=== PATIENT | female | born 1950 | race Caucasian/White ===

== ENCOUNTER 2025-02-27 10:48 | Outpatient (AMB) | payer MEDICARE, SELFPAY ==
--- NOTE | 2025-02-27 11:07 | HO.SPINEOV ---
Vital Signs 02/27/25 11:11 Height 5 ft 1 in Weight 125 lb BMI 23.6 Intake Visit Reasons: Second opinion LBP Intake Note: Mrs. Vuong is here today for a second opinion of her low back pain. Resin Remover Required: No Allergies oxycodone Allergy (Severe, Verified 02/27/25 11:16) Confusion Physical Exam Vital Signs: BMI result Body Mass Index 23.6 Assessment & Plan Assessment & Plan (1) Back pain: Code(s): M54.9 - Dorsalgia, unspecified Category: Medical Plan This is a very nice 74-year-old female with history of osteoporosis, overlapping diagnosis of advanced Lyme disease that was diagnosed very late in the stage where it had caused diffuse inflammation in her body and gave her tremendous whole-body pain and discomfort. She had back pain and was managing it and possibly a year ago or so she felt a pop in her back. That ultimately gave her tremendous back pain. She ended up at [facility] where she was evaluated, was told she was not a surgical candidate. She was thinking something could be done for the compression fracture that was seen at L4 that time, but it was past the time where it was amenable to kyphoplasty so they are unable to help her with that either. They sent her to the [facility] management [facility] [place] [facility]. They were going to do an injection but that ultimately fell through. The patient was not all that excited about it anyway. She has been doing CBD gummies, and physical therapy as well as other Lyme related joint laser therapies as well. She also needs a left hip replaced, but was told by the surgeon in [place] that it needed to be done after her back was fixed 1st. She comes in today with her MRI and requesting a 2nd opinion about her back. PMH: Osteoarthritis, osteoporosis, ovarian cyst removal when she was young with adhesions and surgery for a blocked bowel. She had a right hip replacement, mastectomy for breast cancer. As mentioned she had an undiagnosed case of Lyme that went on for few years which absolutely ravaged her body and left her with chronic pain in multiple joints as well as gave her neurological symptoms such as head tremor and other neurological effects. She has been dealing with the after effects of that diagnosis now for a long time and it more less sends a shadow over most of her pain issues. Social hx: She uses CBD gummies, does not smoke, drink or use any recreational drugs Medications: She takes Ativan asleep, occasional Tylenol and ibuprofen Allergies: Gabapentin made her unsteady on her feet, oxycodone gave her confusion. Physical exam: She is awake alert oriented, she is very uncomfortable, she has a severely arthritic left hip which makes walking and bearing weight very uncomfortable. Any attempts to manipulate the left leg were difficult secondary to pain and discomfort with even passive range of motion. Her strength outside of that related to her hip where is otherwise full and reflexes were normal. Imaging review: Lumbar MRI was reviewed, done at [facility] in 2024 and 2023 as well as a CAT scan was reviewed. This shows severe osteoporosis, she has disc degeneration at T11-12. The rest of the disc quality of the lumbar spine however looks relatively good. She has facet arthropathy throughout most of her lumbar spine. No evidence of disc herniations. The acute compression fractures that were seen on her MRI last year are well healed. There is no new fracture seen. Impression: This is a 74-year-old female who has history of osteoporosis, overriding diagnosis of chronic Lyme disease which was very advanced by the time it was diagnosis, and left her with chronic joint inflammation in multiple areas of her body including her back. Overall in terms of her lumbar spine alignment, there is no evidence of spondylolisthesis, acute fracture. Her disc quality looks otherwise okay. There is no evidence of an acute disc herniation. Right now I do not have a clear surgical target that would explain all of her back pain and discomfort. I think a lot of it has to do with her Lyme disease. Unfortunately, she is waiting on a potential left hip replacement but they wanted her back to be operated on . I agree with the doctor at [facility] who saw her and told her that she was not a surgical candidate, primarily because there is nothing specific here that would lend itself well to surgery on her MRI findings. However, even if there was, her bone quality is so poor, I doubt any attempt at fusing her spine would be met with any success, and she would be very high risk for complication. This is a very unfortunate situation for her, but I do not think we can help her. Thank you for allowing us to care for your patient. The total time spent with this visit with this patient was 45 minutes reviewing history, physical exam, lumbar imaging review, and implementation of treatment plan or further diagnostic testing Ahmet Dietrich MD,PhD [facility] Coding Level of Care Code New Pt Level 4 (44693) Diagnoses Back pain M54.9
[2025-02-27 11:11] VITALS: BMI 23.6
--- OUTSIDE RECORDS SUMMARY | 2025-02-27 12:20 | XMS_ITS | Encounter Summary ---
Author Organization [facility] Address [address] [place] [phone] Phone Care Team Providers Care Leveler Helper Name Role Phone Blanche Morris CNP Primary Care Provide r Lizzy Huber MD Unavailable Unavailable Lizzy Huber MD Unavailable Makenzie Mcghee MD Unavailable Sadie Marina PA-C Unavailable pnugen Mary CoatesP Unavailable [phone] SpringTali MD Unavailable [phone] Alejandro Tirado MD Unavailable Blanche Morris CNP Unavailable Encounter Details Date Type Department Care Team (Late st Contact Info) Description 10/10/2022 Procedure Pass [facility], Ct Scan - [facility] [address] [place] [address] Social History Tobacco Use Types Packs/Day Years Used Date Smoking Tobacco: Former Cigarettes 0.3 37 1 07/04/1969 - 05/03/2007 Smokeless Tobacco: Never Alcohol Use Standard Drinks/Week Comments Yes 0 (1 standard drink = 0.6 oz pur e alcohol) twice a year Education Answer Date Recorded Are you interested in more education? Not on nicki e 09/25/2022 Are you concerned about learning? Not on file 09/25/2022 No 09/25/2022 No 09/25/2022 Comments No Sex and Gender Information Value Date Recorded Sex Assigned at Female 09/16/2022 3:34 PM EDT Legal Sex Female 7:12 AM EST Gender Identity Female 09/16/2022 3:34 PM EDT Sexual Orientation Straight 12/26/2022 8: 56 PM EDT documented as of this encounter Plan of Treatment Upcoming Encounters Date Type Department Care Team (Late st Contact Info) Description 11/23/2024 Procedure Pass [address] [address] 10/06/2025 11:00 AM EDT Appointment [address] [address] Lizzy Huber MD [address] [place] [address] [email or web address] documented as of this encounter Visit Diagnoses Not on filedocumented in this encounter Additional Health Concerns Assessment Noted Time PHQ-9 Depression Total Score: 18 022 10:26 AM EST PHQ-2 Depression Total Score: 4 05/07/20 22 10:27 AM EST documented as of this encounter Care Teams Leveler Helper Relationship Specialty Start Date End Date Blanche Morris CNP [address] [place] [address] PCP - General Family Medicine 07/05/18 Lizzy Huber MD Primary Oncologist Medical Oncology 10/10/22 10/19/22 Lizzy Huber MD [address] [place] [address] Primary Oncologist Medical Oncology 10/20/22 Makenzie Mcghee MD [address] [place] [address] General Surgery 10/25/22 Sadie Marina PA-C [address] [place] [address], 2[address] [place] [address] Physician Cartographic Technician Medical Oncology 11/12/22 Mary Coates, TIRE ASSEMBLER [address] [place] [address] Nurse Practitioner Medical Oncology 11/17/22 Tali Guerrero MD [address] [place] [phone] Primary Oncologist Medical Oncology 12/31/22 Alejandro Tirado MD [address] [address] Primary Oncologist Hematology and Oncology 02/06/23 08/13/23 Blanche Morris CNP [address] [place] [address] Insurance Assigned Provider 09/04/24 documented as of this encounter Additional Source Comments The information contained in this document represents components of the legal health record. It is not the complete legal health record.[facility]
--- OUTSIDE RECORDS SUMMARY | 2025-02-27 12:20 | XMS_ITS | Encounter Summary ---
Author Organization [facility] Address [address] [place] [address] Phone Care Team Providers Care Strapping Machine Operator Name Role Phone Blanche Morris CNP Primary Care Provide r Dioni Webb DO Unavailable Lizzy Huber MD Unavailable Unavailable Lizzy Huber MD Unavailable Makenzie Mcghee MD Unavailable Sadie MarinaC Unavailable tom Mary Coates PRINCIPAL TECHNICAL SPECIALIST Unavailable [phone] SpringTali MD Unavailable [phone] Alejandro Tirado MD Unavailable Blanche Morris CNP Unavailable Encounter Details Date Type Department Care Team (Late st Contact Info) Description 10/19/2019 Transcribe Orders [facility] [address] [place] [address] Sasha Breen MD [address] [place] [address] Encounter for long-term (current) use of antibiotics (Primary Dx) Social History Tobacco Use Types Packs/Day Years Used Date Smoking Tobacco: Former Smokeless Tobacco: Never Alcohol Use Standard Drinks/Week Comments Not Currently 0 (1 standard drink = 0.6 oz pur e alcohol) Rare Comments No Sex and Gender Information Value Date Recorded Sex Assigned at Female 09/16/2022 3:34 PM EDT Legal Sex Female 7:12 AM EST Gender Identity Female 09/16/2022 3:34 PM EDT Sexual Orientation Straight 12/26/2022 8: 56 PM EDT documented as of this encounter Plan of Treatment Upcoming Encounters Date Type Department Care Team (Late st Contact Info) Description 11/23/2024 Procedure Pass [address] [address] 10/06/2025 11:00 AM EDT Appointment [address] [address] Lizzy Huber MD [address] [place] [address] documented as of this encounter Visit Diagnoses Diagnosis Encounter for long-term (current) use of antibiotics- Primary documented in this encounter Additional Health Concerns Assessment Noted Time PHQ-2 Depression Total Score: 3 05/14/20 18 11:14 AM EST documented as of this encounter Care Teams Strapping Machine Operator Relationship Specialty Start Date End Date Blanche Morris CNP [address] [place] [address] PCP - General Family Medicine 07/05/18 Dioni Webb DO [address] [place] [phone] Insurance Assigned Provider 09/07/19 06/09/20 Lizzy Huber MD Primary Oncologist Medical Oncology 10/10/22 10/19/22 Lizzy Huber MD [address] [place] [address] Primary Oncologist Medical Oncology 10/20/22 Makenzie Mcghee MD [address] [place] [address] General Surgery 10/25/22 Sadie Marina PA-C [address] [place] [address] Physician Technical Staff Assistant Medical Oncology 11/12/22 Mary Coates, PRINCIPAL TECHNICAL SPECIALIST [address] [place] [address] Nurse Practitioner Medical Oncology 11/17/22 Tali Guerrero MD [address] [place] [phone] Primary Oncologist Medical Oncology 12/31/22 Alejandro Tirado MD [address] [address] Primary Oncologist Hematology and Oncology 02/06/23 08/13/23 Blanche Morris, MARINA [address] [place] [address] Insurance Assigned Provider 09/04/24 documented as of this encounter Additional Source Comments The information contained in this document represents components of the legal health record. It is not the complete legal health record.[facility]
--- OUTSIDE RECORDS SUMMARY | 2025-02-27 12:20 | XMS_ITS | Encounter Summary ---
Author Organization [facility] Address [address] [place] [address] Phone Care Team Providers Care Athletic Turf Worker Name Role Phone Blanche Morris CNP Primary Care Provide r Lizzy Huber MD Unavailable Makenzie Mcghee MD Unavailable Sadie Marina PA-C Unavailable tom Mary Coates METAL SANDER AND FINISHER Unavailable [phone] Tali Guerrero MD Unavailable [phone] Blanche Morris CNP Unavailable Encounter Details Date Type Department Care Team (Late st Contact Info) Description 02/19/2024 Procedure Pass [facility], [address] [address] Social History Tobacco Use Types Packs/Day Years Used Date Smoking Tobacco: Former Cigarettes 0.3 37 1 07/04/1969 - 05/03/2007 Smokeless Tobacco: Never Alcohol Use Standard Drinks/Week Comments Yes 0 (1 standard drink = 0.6 oz pur e alcohol) not regularly Home Health Assessment: Transportation Answer Date Recorded Lack of Transportation (Medical) No 06/11/2023 Lack of Transportation (Non-Medical) No 06/11/2023 Patient Unable or Declines to Respond No 06/11/2023 Education Answer Date Recorded Are you interested in more education? Not on nicki e 09/25/2022 Are you concerned about learning? Not on file 09/25/2022 No 09/25/2022 No 09/25/2022 Digital Access Answer Date Recorded No 10/22/2022 No 10/22/2022 Reliable internet access at home? Not on file 10/22/2022 Device with a working camera? Not on file Intimate Partner Violence Answer Date R ecorded Are you denied basic needs s uch as food, clothing, or medical care? No 01/29/2024 In the past 12 months have y ou been in a relationship with a person who hurts, threatens, or tries to control you? No 01/29/2024 Are you denied basic needs s uch as food, clothing, or medical care? No 01/29/2024 In the past 12 months have y ou been in a relationship with a person who hurts, threatens, or tries to control you? No 01/29/2024 Comments No Sex and Gender Information Value Date Recorded Sex Assigned at Female 09/16/2022 3:34 PM EDT Legal Sex Female 7:12 AM EST Gender Identity Female 09/16/2022 3:34 PM EDT Sexual Orientation Straight 12/26/2022 8: 56 PM EDT documented as of this encounter Plan of Treatment Upcoming Encounters Date Type Department Care Team (Late st Contact Info) Description 11/23/2024 Procedure Pass [address] [address] 10/06/2025 11:00 AM EDT Appointment [address] [address] Lizzy Huber MD [address] [place] [address] [email or web address] documented as of this encounter Visit Diagnoses Not on filedocumented in this encounter Additional Health Concerns Assessment Noted Time PHQ-9 Depression Total Score: 10 025 8:10 AM EST PHQ-2 Depression Total Score: 4 06/02/19 25 8:10 AM EST documented as of this encounter Care Teams Athletic Turf Worker Relationship Specialty Start Date End Date Blanche Morris CNP [address] [place] [address] [email or web address] PCP - General [facility] Medicine 07/05/18 Lizzy Huber MD [address] [place] [address] [email or web address] Primary Oncologist Medical Oncology 10/20/22 Makenzie Mcghee MD [address] [address] [email or web address] General Surgery 10/25/22 Sadie Marina PA-C [address] [place] [phone] [email or web address] Physician Vamper Medical Oncology 11/12/22 Mary Coates FNP [address] [place] [address] [email or web address] Nurse Practitioner Medical Oncology 11/17/22 Tali Guerrero MD [address] [place] [phone] [email or web address] Primary Oncologist Medical Oncology 12/31/22 Blanche Morris CNP [address] [place] [address] [email or web address] Insurance Assigned Provider 09/04/24 documented as of this encounter Additional Source Comments The information contained in this document represents components of the legal health record. It is not the complete legal health record.[facility]
--- OUTSIDE RECORDS SUMMARY | 2025-02-27 12:20 | XMS_ITS | Encounter Summary ---
Author Organization [facility] Address [address] [place] [address] Phone Care Team Providers Care Grinder Brake Lining Name Role Phone Blanche Morris CNP Primary Care Provide r Lizzy Huber MD Unavailable Makenzie Mcghee MD Unavailable [phone] Sadie Marina PA-C Unavailable tom Mary Coates INTERVENTION NURSE Unavailable SpringTali MD Unavailable [phone] Alejandro Tirado MD Unavailable Blanche Morris CNP Unavailable Encounter Details Date Type Department Care Team (Late st Contact Info) Description 10/28/2022 Procedure Pass [facility] Cardiovascular And Interventional Radiology [address] [place] [address] Social History Tobacco Use Types Packs/Day Years [...] with a working camera? Not on file Comments No Sex and Gender Information Value Date Recorded Sex Assigned at Female 09/16/2022 3:34 PM EDT Legal Sex Female 7:12 AM EST Gender Identity Female 09/16/2022 3:34 PM EDT Sexual Orientation Straight 12/26/2022 8: 56 PM EDT documented as of this encounter Plan of Treatment Upcoming Encounters Date Type Department Care Team (Late st Contact Info) Description 11/23/2024 Procedure Pass [address] [address] 10/06/2025 11:00 AM EDT Appointment [address] [address] Lizzy Huber MD [address] [place] [address] documented as of this encounter Visit Diagnoses Not on filedocumented in this encounter Additional Health Concerns Assessment Noted Time PHQ-9 Depression Total Score: 18 022 10:26 AM EST PHQ-2 Depression Total Score: 4 05/07/20 22 10:27 AM EST documented as of this encounter Care Teams Grinder Brake Lining Relationship Specialty Start Date End Date Blanche Morris CNP [address] [place] [address] [place] [address] PCP - General Family Medicine 07/05/18 Lizzy Huber MD [address] [place] [address] Primary Oncologist Medical Oncology 10/20/22 Makenzie Mcghee MD [address] [address] General Surgery 10/25/22 Sadie Marina PA-C [address] [place] [address] Physician Pantograph Transferrer Medical Oncology 11/12/22 Mary Coates FNP [address] [place] [address] Nurse Practitioner Medical Oncology 11/17/22 Tali Guerrero MD [address] [place] [phone] [email or web address] Primary Oncologist Medical Oncology 12/31/22 Alejandro Tirado MD [address] [address] Primary Oncologist Hematology and Oncology 02/06/23 08/13/23 Blanche Morris, MARINA [address] [place] [address] Insurance Assigned Provider 09/04/24 documented as of this encounter Additional Source Comments The information contained in this document represents components of the legal health record. It is not the complete legal health record.[facility]
--- OUTSIDE RECORDS SUMMARY | 2025-02-27 12:20 | XMS_ITS | Encounter Summary ---
Author Organization [facility] Address [address] [place] [address] Phone Care Team Providers Care Bin Cleaner Name Role Phone Blanche Morris CNP Primary Care Provide r Lizzy Huber MD Unavailable Makenzie Mcghee MD Unavailable Sadie Marina PA-C Unavailable tom Mary Coates PIPE AND BOILER COVERS SUPERVISOR Unavailable [place] MD Unavailable [phone] Blanche Morris CNP Unavailable [phone] Reason for Referral * MRI/CAT Scan - Closed Specialty Diagnoses / Procedures Referred By Contac t Referred To Contact Radiology Diagnoses Spinal stenosis, lumbar region without neurogenic claudication Other intervertebral disc degeneration, lumbar region without mention of lumbar back pain or lower extremity pain Procedures MRI Lumbar Spine Juan Diego Wynn MD [address] [place] [address] Phone: tel: fax: Referral ID Status Reason Start Date Expiration Date Visits Re quested Visits Authorized [id number] Closed 01/17/2025 01/17/2026 1 1 Encounter Details Date Type Department Care Team (Latest Contact Info) Description 01/17/2025 Transcribe Orders Virtual Department [address] [place] [address] Juan Diego Wynn MD [address] [place] [address] [phone] Spinal stenosis, lumbar region without neurogenic claudication (Primary Dx); Other intervertebral disc degeneration, lumbar region without mention of lumbar back pain or lower extremity pain Social History Tobacco Use Types Packs/Day Years [...] as food, clothing, or medical care? No 06/02/2024 In the past 12 months have y ou been in a relationship with a person who hurts, threatens, or tries to control you? No 06/02/2024 Are you denied basic needs s uch as food, clothing, or medical care? No 06/02/2024 In the past 12 months have y ou been in a relationship with a person who hurts, threatens, or tries to control you? No 06/02/2024 Comments No Sex and Gender Information Value Date Recorded Sex Assigned at Female 09/16/2022 3:34 PM EDT Legal Sex Female 7:12 AM EST Gender Identity Female 09/16/2022 3:34 PM EDT Sexual Orientation Straight 12/26/2022 8: 56 PM EDT documented as of this encounter Plan of Treatment Upcoming Encounters Date Type Department Care Team (Late st Contact Info) Description 11/23/2024 Procedure Pass [address] [address] 10/06/2025 11:00 AM EDT Appointment [address] [address] Lizzy Huber MD [address] [place] [email or web address] documented as of this encounter Results * MRI LUMBAR SPINE (NEURO) WITHOUT CONTRAST (02/11/2025 11:00 AM EDT) Anatomical Region Laterality Modality L-spine Magnetic Resonan ce 02/13/2025 9:20 AM EDT Impressions 02/13/2025 9:30 AM EDT 1. Interval healing of the L4 superior endplate compression fracture, with resolution of the bone marrow edema. 2. L5 superior endplate chronic compression fracture, unchanged. 3. No acute compression fracture. 4. Extensive degenerative disc disease and facet joint arthropathy at multiple levels, with mild canal stenosis at multiple levels, and multilevel foramina stenosis, as above. 5. Other findings, as above. Narrative 02/13/2025 9:30 AM EDT MRI LUMBAR SPINE (NEURO) WITHOUT CONTRAST Referring clinician's provided indication for this examination in Epic: Outside Radiology Order; spinal stenosis TECHNIQUE: MRI LUMBAR SPINE (NEURO) WITHOUT CONTRAST Multi-sequence, multi-planar MRI of the lumbar spine was performed without intravenous contrast. COMPARISON: Lumbar spine CT scan December 25, 2023. MRI lumbar spine October 28, 2023. FINDINGS: LUMBAR SPINE: Alignment and Vertebrae: Grade 1 spondylolisthesis again seen at L4-L5, without significant change. Mild anterolisthesis noted at L3-L4 and L5-S1, stable. There is also mild retrolisthesis at T11-T12 and T12-L1, unchanged. Interval healing of the L4 superior endplate compression fracture, with resolution of the bone marrow edema. There are vertebral height is unchanged with minimal loss of height, less than 25%. Chronic compression fracture again seen in the L5 superior endplate with 25% loss of height, stable. Other vertebral demonstrate normal height. No acute compression fracture. Marrow: No worrisome bone marrow replacing lesion. Discs and Endplates: Loss of disc height at T11-T12 and T12-L1, moderate to severe, with Modic type II endplate changes at T11-T1, stable. There is mild to moderate loss of disc height at L2-L3 and mild loss of disc height at L3-L4 and L5-S1, unchanged. Conus: The tip of the conus ends at T12-L1. No compression or intrinsic signal abnormality. Soft Tissues: No prevertebral edema. There is atrophy of the posterior paraspinous muscles. Other Findings: T2 hyperintensity in the right hepatic lobe laterally and peripherally measuring 11 mm, seen on the localizer sequence, not completely characterized in this exam. Tiny T2 hyperintensity in the right upper renal cortex measuring 4 mm, not completely characterized in this study. These may represent small cysts. Please see abdomen and pelvis CT of October 22, 2022. Findings by level: T11-T12: Disc osteophyte complex and facet arthropathy, without significant change. No high-grade spinal canal stenosis. Severe right foraminal stenosis, stable. T12-L1: Facet hypertrophy no significant posterior disc abnormality. There is retrolisthesis at this level. There is mild encroachment of the spinal canal without high-grade stenosis. There is severe left and moderate to severe right foraminal stenosis. L1-L2: Mild disc bulging. Facet joint arthropathy. No high-grade spinal canal stenosis. Moderate bilateral foraminal stenosis. L2-L3: Disc bulge and facet arthropathy. No high-grade spinal canal stenosis or foraminal stenosis. L3-L4: Minimal bulging with a right foraminal annulus fissure, stable. Facet arthropathy. There is mild spinal canal stenosis. No high-grade foraminal stenosis. L4-L5: Disc bulge. There is a central annulus fissure, stable. Facet joint arthropathy. Mild encroachment of the canal, unchanged. Minimal encroachment of the right foramina. L5-S1: Minimal disc bulging with a left subarticular zone annulus fissure, stable. Facet arthropathy. No high-grade spinal canal stenosis or significant foraminal stenosis. Procedure Note Gertrudis Conde MD - 02/13/2025 MRI LUMBAR SPINE (NEURO) WITHOUT CONTRAST Referring clinician's provided indication for this examination in Epic:Outside Radiology Order; spinal stenosis TECHNIQUE: MRI LUMBAR SPINE (NEURO) WITHOUT CONTRAST Multi-sequence, multi-planar MRI of the lumbar spine was performed withoutintravenous contrast. COMPARISON: Lumbar spine CT scan December 25, 2023. MRI lumbar spine September. FINDINGS: LUMBAR SPINE: Alignment and Vertebrae: Grade 1 spondylolisthesis again seen at L4-L5,without significant change. Mild anterolisthesis noted at L3-L4 and L5-S1,stable. There is also mild retrolisthesis at T11-T12 and T12-L1,unchanged. Interval healing of the L4 superior endplate compression fracture, withresolution of the bone marrow edema. There are vertebral height isunchanged with minimal loss of height, less than 25%. Chronic compressionfracture again seen in the L5 superior endplate with 25% loss of height,stable. Other vertebral demonstrate normal height. No acute compressionfracture. Marrow: No worrisome bone marrow replacing lesion. Discs and Endplates: Loss of disc height at T11-T12 and T12-L1, moderateto severe, with Modic type II endplate changes at T11-T1, stable. There ismild to moderate loss of disc height at L2-L3 and mild loss of disc heightat L3-L4 and L5-S1, unchanged. Conus: The tip of the conus ends at T12-L1. No compression or intrinsicsignal abnormality. Soft Tissues: No prevertebral edema. There is atrophy of the posteriorparaspinous muscles. Other Findings: T2 hyperintensity in the right hepatic lobe laterally andperipherally measuring 11 mm, seen on the localizer sequence, notcompletely characterized in this exam. Tiny T2 hyperintensity in the rightupper renal cortex measuring 4 mm, not completely characterized in thisstudy. These may represent small cysts. Please see abdomen and pelvis CTof October 22, 2022. Findings by level: T11-T12: Disc osteophyte complex and facet arthropathy, withoutsignificant change. No high-grade spinal canal stenosis. Severe rightforaminal stenosis, stable. T12-L1: Facet hypertrophy no significant posterior disc abnormality. Thereis retrolisthesis at this level. There is mild encroachment of the spinalcanal without high-grade stenosis. There is severe left and moderate tosevere right foraminal stenosis. L1-L2: Mild disc bulging. Facet joint arthropathy. No high-grade spinalcanal stenosis. Moderate bilateral foraminal stenosis. L2-L3: Disc bulge and facet arthropathy. No high-grade spinal canalstenosis or foraminal stenosis. L3-L4: Minimal bulging with a right foraminal annulus fissure, stable.Facet arthropathy. There is mild spinal canal stenosis. No high-gradeforaminal stenosis. L4-L5: Disc bulge. There is a central annulus fissure, stable. Facet jointarthropathy. Mild encroachment of the canal, unchanged. Minimalencroachment of the right foramina. L5-S1: Minimal disc bulging with a left subarticular zone annulus fissure,stable. Facet arthropathy. No high-grade spinal canal stenosis orsignificant foraminal stenosis. IMPRESSION: 1. Interval healing of the L4 superior endplate compression fracture,with resolution of the bone marrow edema. 2. L5 superior endplate chronic compression fracture, unchanged. 3. No acute compression fracture. 4. Extensive degenerative disc disease and facet joint arthropathy atmultiple levels, with mild canal stenosis at multiple levels, andmultilevel foramina stenosis, as above. 5. Other findings, as above. Juan Diego Wynn MD G MR XSPECIALTY Final Result documented in this encounter Visit Diagnoses Diagnosis Spinal stenosis, lumbar region without neurogenic claudication- Primary Other intervertebral disc degeneration, lumbar region without mention of lumbar back pain or lower extremity pain Spinal stenosis, lumbar region without neurogenic claudication Other intervertebral disc degeneration, lumbar region without mention of lumbar back pain or lower extremity pain documented in this encounter Additional Health Concerns Assessment Noted Time PHQ-9 Depression Total Score: 10 025 8:10 AM EST PHQ-2 Depression Total Score: 4 06/02/19 8:10 AM EST documented as of this encounter Care Teams Bin Cleaner Relationship Specialty Start Date End Date Blanche Morris CNP [address] [place] [phone] [email or web address] PCP - General Family Medicine 07/05/18 Lizzy Huber MD [address] [place] [phone] [email or web address] Primary Oncologist Medical Oncology 10/20/22 Makenzie Mcghee MD [address] [place] [phone] [email or web address] General Surgery 10/25/22 Sadie Marina PA-C [address] [place] [phone] [email or web address] Physician Clinical Quality Analyst Medical Oncology 11/12/22 Mary Coates FNP [address] [place] [phone] [email or web address] Nurse Practitioner Medical Oncology 11/17/22 Tali Guerrero MD [address] [place] [address] [phone] [email or web address] Primary Oncologist Medical Oncology 12/31/22 Blanche Morris CNP [address] [place] [phone] [email or web address] Insurance Assigned Provider 09/04/24 documented as of this encounter Additional Source Comments The information contained in this document represents components of the legal health record. It is not the complete legal health record.[facility]
--- OUTSIDE RECORDS SUMMARY | 2025-02-27 12:20 | XMS_ITS | Encounter Summary ---
Author Organization [facility] Address [address] [place] [address] Phone Care Team Providers Care Cosmetic Sales Assistant Name Role Phone Blanche Morris CNP Primary Care Provide r Lizzy Huber MD Unavailable [phone] Makenzie Mcghee MD Unavailable [phone] Sadie Marina PA-C Unavailable tom Mary Coates MANAGER HOME HEALTHCARE Unavailable [phone] SpringTali MD Unavailable [phone] Alejandro Tirado MD Unavailable Blanche Morris CNP Unavailable [phone] Encounter Details Date Type Department Care Team (Late st Contact Info) Description 10/28/2022 Procedure Pass OR Admitting Dept - Virtual Department 30 [place] [address] Social History Tobacco Use Types Packs/Day Years [...] st Contact Info) Description 11/23/2024 Procedure Pass [address] [address] 10/06/2025 11:00 AM EDT Appointment [address] [address] Lizzy Huber MD [address] [place] [phone] [email or web address] documented as of this encounter Visit Diagnoses Not on filedocumented in this encounter Additional Health Concerns Assessment Noted Time PHQ-9 Depression Total Score: 18 022 10:26 AM EST PHQ-2 Depression Total Score: 4 05/07/20 22 10:27 AM EST documented as of this encounter Care Teams Cosmetic Sales Assistant Relationship Specialty Start Date End Date Blanche Morris CNP [address] [place] [address] [place] [address] PCP - General Family Medicine 07/05/18 Lizzy Huber MD [address] [place] [address] Primary Oncologist Medical Oncology 10/20/22 Makenzie Mcghee MD [address] [address] General Surgery 10/25/22 Sadie Marina PA-C [address] [place] [address] Physician Central Service Supply Distributor Medical Oncology 11/12/22 Mary Coates FNP [address] [place] [address] Nurse Practitioner Medical Oncology 11/17/22 Tali Guerrero MD [address] [place] [address] [phone] Primary Oncologist Medical Oncology 12/31/22 Alejandro Tirado MD [address] [address] Primary Oncologist Hematology and Oncology 02/06/23 08/13/23 Blanche Morris, MARINA [address] [place] [phone] Insurance Assigned Provider 09/04/24 documented as of this encounter Additional Source Comments The information contained in this document represents components of the legal health record. It is not the complete legal health record.[facility]
--- OUTSIDE RECORDS SUMMARY | 2025-02-27 12:20 | XMS_ITS | Clinical Summary ---
Author Organization [facility] Address [facility] [place] [address] Care Team Providers Care Polisher Apprentice Name Role Phone Unavailable Primary Care Provider Unavailabl e Social History Tobacco Use Types Packs/Day Years Used Date Smoking Tobacco: Never Assessed Comments Unknown Sex and Gender Information Value Date Recorded Sex Assigned at Not on file Legal Sex Female 2:27 PM EST Gender Identity Not on file Sexual Orientation Not on file Plan of Treatment Health Maintenance Due Date Last Done Comments CT Colonography 1951 Colonoscopy 1951 Colorectal Cancer Screening 1950 FIT DNA 1951 FIT 1950 Sigmoidoscopy (10 year) with FIT yearly 1951 Sigmoidoscopy 1950 Hepatitis C Screening 11/05/1969 Tetanus/Diphtheria/Pertussis Vaccines (1 - Tdap) 11/05 Breast Cancer Share Decision Needed 1991 Breast Cancer screening 1991 Pneumoccocal Vaccine: 50+ (1 of 1 - PCV) 11/05/2001 Zoster vaccine (1 of 2) 11/05/2001 Advance Directive 11/05/2006 Bone Density Scan 11/05/2016 Covid-19 Vaccine (1 - season) 2025 Influenza (Flu) vaccine (1 o f 1 - Influenza standard series) 01/30/2025
--- OUTSIDE RECORDS SUMMARY | 2025-02-27 12:20 | XMS_ITS | Encounter Summary ---
Author Organization [facility] Address [address] [place] [address] Phone Care Team Providers Care Assistant Teacher Name Role Phone Blanche Morris CNP Primary Care Provide r Lizzy Huber MD Unavailable Makenzie Mcghee MD Unavailable Sadie Marina PA-C Unavailable tom Mary Coates RENEWABLE ENERGY PROJECT MANAGER Unavailable SpringTali MD Unavailable [phone] Alejandro Tirado MD Unavailable [phone] Blanche Morris CNP Unavailable Encounter Details Date Type Department Care Team (Late st Contact Info) Description 01/14/2023 Procedure Pass [facility], [address] [address] Social History Tobacco Use Types Packs/Day Years [...] st Contact Info) Description 11/23/2024 Procedure Pass [address] [address] 10/06/2025 11:00 AM EDT Appointment [address] [address] Lizzy Huber MD [address] [place] [phone] documented as of this encounter Visit Diagnoses Not on filedocumented in this encounter Additional Health Concerns Assessment Noted Time PHQ-9 Depression Total Score: 18 022 10:26 AM EST PHQ-2 Depression Total Score: 4 05/07/20 22 10:27 AM EST documented as of this encounter Care Teams Assistant Teacher Relationship Specialty Start Date End Date Blanche Morris CNP [address] [place] [address] [place] [address] PCP - General Family Medicine 07/05/18 Lizzy Huber MD [address] [place] [address] Primary Oncologist Medical Oncology 10/20/22 Makenzie Mcghee MD [address] [address] General Surgery 10/25/22 Sadie Marina PA-C [address] [place] [address] Physician Natural Science Manager Medical Oncology 11/12/22 Mary Coates FNP [address] [place] [phone] Nurse Practitioner Medical Oncology 11/17/22 Tali Guerrero MD [address] [place] [phone] Primary Oncologist Medical Oncology 12/31/22 Alejandro Tirado MD [address] [address] Primary Oncologist Hematology and Oncology 02/06/23 08/13/23 Blanche Morris CNP [address] [place] [address] Insurance Assigned Provider 09/04/24 documented as of this encounter Additional Source Comments The information contained in this document represents components of the legal health record. It is not the complete legal health record.[facility]
--- OUTSIDE RECORDS SUMMARY | 2025-02-27 12:20 | XMS_ITS | Encounter Summary ---
Author Organization [facility] Address [address] [place] [address] Phone Care Team Providers Care Rand Cementer Name Role Phone Blanche Morris CNP Primary Care Provide r Lizzy Huber MD Unavailable Makenzie Mcghee MD Unavailable Sadie MarinaC Unavailable [email or web address] armando Mary Coates BOAT PAINTER Unavailable [phone] SpringTali MD Unavailable [phone] Alejandro Tirado MD Unavailable Blanche Morris CNP Unavailable Encounter Details Date Type Department Care Team (Late st Contact Info) Description 10/31/2022 Procedure Pass [facility] [address] [place] [address] Social History Tobacco Use Types Packs/Day Years [...] st Contact Info) Description 11/23/2024 Procedure Pass [address] [address] 10/06/2025 11:00 AM EDT Appointment [address] [address] Lizzy Huber MD [address] [place] [phone] [email or web address] documented as of this encounter Visit Diagnoses Not on filedocumented in this encounter Additional Health Concerns Assessment Noted Time PHQ-9 Depression Total Score: 18 022 10:26 AM EST PHQ-2 Depression Total Score: 4 05/07/20 22 10:27 AM EST documented as of this encounter Care Teams Rand Cementer Relationship Specialty Start Date End Date Blanche Morris CNP [address] [place] [address] [place] [address] PCP - General Family Medicine 07/05/18 Lizzy Huber MD [address] [place] [address] Primary Oncologist Medical Oncology 10/20/22 Makenzie Mcghee MD [address] [address] General Surgery 10/25/22 Sadie Marina PA-C [address] [address] Physician Line Installer Trolley Medical Oncology 11/12/22 Mary Coates FNP [address] [place] [address] Nurse Practitioner Medical Oncology 11/17/22 Tali Guerrero MD [address] [place] [phone] Primary Oncologist Medical Oncology 12/31/22 Alejandro Tirado MD [address] [address] Primary Oncologist Hematology and Oncology 02/06/23 08/13/23 Blanche Morris CNP [address] [place] [address] Insurance Assigned Provider 09/04/24 documented as of this encounter Additional Source Comments The information contained in this document represents components of the legal health record. It is not the complete legal health record.[facility]
--- OUTSIDE RECORDS SUMMARY | 2025-02-27 12:20 | XMS_ITS | Encounter Summary ---
Author Organization [facility] Address [address] [place] [address] Phone Care Team Providers Care Air Breaker Operator Name Role Phone Blanche Morris CNP Primary Care Provide r Lizzy Huber MD Unavailable Unavailable Lizzy Huber MD Unavailable [phone] Makenzie Mcghee MD Unavailable Sadie Marina PA-C Unavailable pnugen Mary CoatesP Unavailable SpringTali MD Unavailable [phone] Alejandro Tirado MD Unavailable Blanche Morris CNP Unavailable Encounter Details Date Type Department Care Team (Late st Contact Info) Description 10/10/2022 Procedure Pass [facility], Ct Scan - [facility] [address] [place] [address] Social History Tobacco Use Types Packs/Day Years [...] st Contact Info) Description 11/23/2024 Procedure Pass [address] [address] 10/06/2025 11:00 AM EDT Appointment [address] [address] Lizzy Huber MD [address] [place] [address] [email or web address] documented as of this encounter Visit Diagnoses Not on filedocumented in this encounter Additional Health Concerns Assessment Noted Time PHQ-9 Depression Total Score: 18 022 10:26 AM EST PHQ-2 Depression Total Score: 4 05/07/20 22 10:27 AM EST documented as of this encounter Care Teams Air Breaker Operator Relationship Specialty Start Date End Date Blanche Morris CNP [address] [place] [address] PCP - General Family Medicine 07/05/18 Lizzy Huber MD Primary Oncologist Medical Oncology 10/10/22 10/19/22 Lizzy Huber MD [address] [place] [address] Primary Oncologist Medical Oncology 10/20/22 Makenzie Mcghee MD [address] [place] [address] General Surgery 10/25/22 Sadie Marina PA-C [address] [place] [address], 2[address] [place] [address] Physician Facility Operations Manager Medical Oncology 11/12/22 Mary Coates, LOCKSTITCH SHOULDER JOINER [address] [place] [phone] Nurse Practitioner Medical Oncology 11/17/22 Tali Guerrero MD [address] [place] [phone] Primary Oncologist Medical Oncology 12/31/22 Alejandro Tirado MD [address] [address] Primary Oncologist Hematology and Oncology 02/06/23 08/13/23 Blanche Morris CNP [address] [place] [phone] Insurance Assigned Provider 09/04/24 documented as of this encounter Additional Source Comments The information contained in this document represents components of the legal health record. It is not the complete legal health record.[facility]
--- OUTSIDE RECORDS SUMMARY | 2025-02-27 12:20 | XMS_ITS | Encounter Summary ---
Author Organization [facility] Address [address] [place] [address] Phone Care Team Providers Care Councilperson Name Role Phone Blanche Morris CNP Primary Care Provide r Lizzy Huber MD Unavailable Makenzie Mcghee MD Unavailable [phone] Sadie Marina PA-C Unavailable tom Mary Coates COMMUNITY OUTREACH SPECIALIST Unavailable [phone] SpringTali MD Unavailable [phone] Alejandro Tirado MD Unavailable Blanche Morris CNP Unavailable Encounter Details Date Type Department Care Team (Late st Contact Info) Description 04/14/2023 Procedure Pass OR Admitting Dept - Virtual Department 30 [place] [address] Social History Tobacco Use Types Packs/Day Years Used Date Smoking Tobacco: Former Cigarettes 0.3 37 1 07/04/1969 - 05/03/2007 Smokeless Tobacco: Never Alcohol Use Standard Drinks/Week Comments Never 0 (1 standard drink = 0.6 oz pur e alcohol) Home Health Assessment: Transportation Answer Date Recorded Lack of Transportation (Medical) No 04/16/2023 Lack of Transportation (Non-Medical) No 04/16/2023 Patient Unable or Declines to Respond No 04/16/2023 Education Answer Date Recorded Are you interested [...] PM EDT documented as of this encounter Functional Status * Calculated C-SSRS Risk Score (Lifetime/Recent) Answer Date of Assessment Author No Risk Indicated 04/14/2023 5:46 PM Cece Dougherty RN * Smilax Suicide Severity Rating Scale (Screener/Recent Self-Report) Question Answer Date of Assessment Author 1. Wish to be (Past 1 Month) No 04/14/2023 5:46 PM Cece Dougherty RN 2. Non-Specific Active Suici rolando Thoughts (Past 1 Month) No 04/14/2023 5:46 PM Cece Dougherty RN 6. Suicidal Behavior (Lifetime) No 5:46 PM Cece Dougherty RN documented as of this encounter Plan of Treatment Upcoming Encounters Date Type Department Care Team (Late st Contact Info) Description 11/23/2024 Procedure Pass [address] [address] 10/06/2025 11:00 AM EDT Appointment [address] [address] Lizzy Huber MD [address] [place] [address] [email or web address] documented as of this encounter Visit Diagnoses Not on filedocumented in this encounter Additional Health Concerns Assessment Noted Time PHQ-9 Depression Total Score: 18 022 10:26 AM EST PHQ-2 Depression Total Score: 4 05/07/20 22 10:27 AM EST documented as of this encounter Care Teams Councilperson Relationship Specialty Start Date End Date Blanche Morris CNP 29 [place] [address] [email or web address] PCP - General Family Medicine 07/05/18 Lizzy Huber MD 30 [place] [address] [email or web address] Primary Oncologist Medical Oncology 10/20/22 Makenzie Mcghee MD [address] [address] [email or web address] General Surgery 10/25/22 Sadie Marina PA-C [address] [place] [address] [email or web address] Physician Beater Engineer Medical Oncology 11/12/22 Mary Coates FNP [address] [place] [address] [email or web address] Nurse Practitioner Medical Oncology 11/17/22spring, Tali Jimenez MD [address] [place] [phone] [email or web address] Primary Oncologist Medical Oncology 12/31/22 Alejandro Tirado MD [address] [address] Primary Oncologist Hematology and Oncology 02/06/23 08/13/23 Blanche Morris, ASSISTANT PROSECUTING ATTORNEY [address] [place] [address] [email or web address] Insurance Assigned Provider 09/04/24 documented as of this encounter Additional Source Comments The information contained in this document represents components of the legal health record. It is not the complete legal health record.[facility]
--- OUTSIDE RECORDS SUMMARY | 2025-02-27 12:20 | XMS_ITS | Encounter Summary ---
Author Organization [facility] Address [address] [place] [address] Phone Care Team Providers Care Cardiology Consultant Name Role Phone Blanche Morris CNP Primary Care Provide r Dioni Webb DO Unavailable Dioni Webb DO Unavailable Lizzy Huber MD Unavailable Unavailable Lizzy Huber MD Unavailable Makenzie Mcghee MD Unavailable [phone] Sadie Marina PA-C Unavailable tom Mary Coates BRAKE REPAIRER AIR Unavailable [phone] Tali Guerrero MD Unavailable [phone] Alejandro Tirado MD Unavailable Blanche Morris CNP Unavailable [phone] Encounter Details Date Type Department Care Team (Late st Contact Info) Description 08/10/2018 Transcribe Orders [facility] [address] [place] [address] Blanche Morris CNP 29 [facility] [place] [address] [email or web address] Social History Tobacco Use Types Packs/Day Years Used Date Smoking Tobacco: Former Smokeless Tobacco: Never Comments Unknown Sex and Gender Information Value Date Recorded Sex Assigned at Female 09/16/2022 3:34 PM EDT Legal Sex Female 7:12 AM EST Gender Identity Female 09/16/2022 3:34 PM EDT Sexual Orientation Straight 12/26/2022 8: 56 PM EDT documented as of this encounter Plan of Treatment Upcoming Encounters Date Type Department Care Team (Late st Contact Info) Description 11/23/2024 Procedure Pass [address] [address] 10/06/2025 11:00 AM EDT Appointment [address] [address] Lizzy Huber MD [address] [place] [address] [email or web address] documented as of this encounter Visit Diagnoses Not on filedocumented in this encounter Additional Health Concerns Assessment Noted Time PHQ-2 Depression Total Score: 3 05/14/20 18 11:14 AM EST documented as of this encounter Care Teams Cardiology Consultant Relationship Specialty Start Date End Date Blanche Morris CNP [address] [place] [address] PCP - General Family Medicine 07/05/18 Dioni Webb DO [address] [place] [address] Insurance Assigned Provider 10/02/18 12/11/18 Dioni Webb DO [address] [place] [address] Insurance Assigned Provider 09/07/19 06/09/20 Lizzy Huber MD Primary Oncologist Medical Oncology 10/10/22 10/19/22 Lizzy Huber MD [address] [place] [address] Primary Oncologist Medical Oncology 10/20/22 Makenzie Mcghee MD [address] [place] [address] General Surgery 10/25/22 aSdie Marina PA-C [address] [place] [address] [email or web address] Physician Copy Preparer Medical Oncology 11/12/22 Mary Coates FNP [address] [place] [address] Nurse Practitioner Medical Oncology 11/17/22 Tali Guerrero MD [address] [place] [address] [phone] Primary Oncologist Medical Oncology 12/31/22 Alejandro Tirado MD [address] [place] [address] Primary Oncologist Hematology and Oncology 02/06/23 08/13/23 Blanche Morris, MARINA 29 [place] [address] Insurance Assigned Provider 09/04/24 documented as of this encounter Additional Source Comments The information contained in this document represents components of the legal health record. It is not the complete legal health record.[facility]
--- OUTSIDE RECORDS SUMMARY | 2025-02-27 12:20 | XMS_ITS | Encounter Summary ---
Author Organization [facility] Address [address] [place] [address] Phone Care Team Providers Care Ply Bander Name Role Phone Blanche [place] CNP Primary Care Provide r Lizzy Huber MD Unavailable Makenzie Mcghee MD Unavailable Sadie Marina PA-C Unavailable tom Mary Coates SCHOOL TRAFFIC SUPERVISOR Unavailable [phone] SpringTali MD Unavailable [phone] Alejandro Tirado MD Unavailable Blanche [place] CNP Unavailable Encounter Details Date Type Department Care Team (Late st Contact Info) Description 07/08/2023 Procedure Pass [facility] 30 [place] [address] Social History Tobacco Use Types Packs/Day Years [...] st Contact Info) Description 11/23/2024 Procedure Pass [address] [address] 10/06/2025 11:00 AM EDT Appointment [address] [address] Lizzy Huber MD [address] [place] [address] [email or web address] documented as of this encounter Visit Diagnoses Not on filedocumented in this encounter Additional Health Concerns Assessment Noted Time PHQ-9 Depression Total Score: 18 022 10:26 AM EST PHQ-2 Depression Total Score: 4 05/07/20 22 10:27 AM EST documented as of this encounter Care Teams Ply Bander Relationship Specialty Start Date End Date Blanche Morris CNP [address] [place] [address] [place] [address] [email or web address] PCP - General Family Medicine 07/05/18 Lizzy Huber MD [address] [place] [address] Primary Oncologist Medical Oncology 10/20/22 Makenzie Mcghee MD [address] [place] [address] General Surgery 10/25/22 Sadie Marina PA-C [address] [place] [address] Physician Engineering Department Chair Medical Oncology 11/12/22 Mary Coates, SCHOOL TRAFFIC SUPERVISOR [address] [place] [address] Nurse Practitioner Medical Oncology 11/17/22 Tali Guerrero MD [address] [place] [address] [phone] Primary Oncologist Medical Oncology 12/31/22 Alejandro Tirado MD [address] [address] Primary Oncologist Hematology and Oncology 02/06/23 08/13/23 Blanche Morris, MARINA [address] [place] [phone] Insurance Assigned Provider 09/04/24 documented as of this encounter Additional Source Comments The information contained in this document represents components of the legal health record. It is not the complete legal health record.[facility]
--- OUTSIDE RECORDS SUMMARY | 2025-02-27 12:20 | XMS_ITS | Encounter Summary ---
Author Organization [facility] Address [address] [place] [address] Phone Care Team Providers Care Grief Counsellor Name Role Phone Blanche [place] CNP Primary Care Provide r Lizzy Huber MD Unavailable Makenzie Mcghee MD Unavailable Sadie Marina PA-C Unavailable tom Mary Coates PAIN MEDICINE PHYSICIAN Unavailable [phone] Tali Guerrero MD Unavailable [phone] Blanche [place] CNP Unavailable Encounter Details Date Type Department Care Team (Late st Contact Info) Description 01/17/2025 Procedure Pass [facility], [address] [address] Social History Tobacco Use Types Packs/Day Years [...] st Contact Info) Description 11/23/2024 Procedure Pass [address] [address] 10/06/2025 11:00 AM EDT Appointment [address] [address] Lizzy Huber MD [address] [place] [email or web address] documented as of this encounter Visit Diagnoses Not on filedocumented in this encounter Additional Health Concerns Assessment Noted Time PHQ-9 Depression Total Score: 10 025 8:10 AM EST PHQ-2 Depression Total Score: 4 06/02/19 25 8:10 AM EST documented as of this encounter Care Teams Grief Counsellor Relationship Specialty Start Date End Date Blanche Morris CNP 29 [place] [address] [email or web address] PCP - General [facility] Medicine 07/05/18 Lizzy Huber MD 30 [place] [address] [email or web address] Primary Oncologist Medical Oncology 10/20/22 Makenzie Mcghee MD [address] [address] [email or web address] General Surgery 10/25/22 Sadie Marina PA-C [address] [place] [address] [email or web address] Physician Ad Operations Coordinator Medical Oncology 11/12/22 Mary Coates FNP [address] [place] [address] [email or web address] Nurse Practitioner Medical Oncology 11/17/22 Tali Guerrero MD [address] [place] [phone] [email or web address] Primary Oncologist Medical Oncology 12/31/22 Blanche Morris CNP 29 [place] [address] [email or web address] Insurance Assigned Provider 09/04/24 documented as of this encounter Additional Source Comments The information contained in this document represents components of the legal health record. It is not the complete legal health record.[facility]
--- OUTSIDE RECORDS SUMMARY | 2025-02-27 12:20 | XMS_ITS | Encounter Summary ---
Author Organization [facility] Address [address] [place] [address] Phone Care Team Providers Care Tanker Truck Driver Name Role Phone Blanche [place] CNP Primary Care Provide r Lizzy Huber MD Unavailable Makenzie Mcghee MD Unavailable Sadie Marina PA-C Unavailable tom Mary Coates LIBRARY INFORMATION TECHNICIAN Unavailable [phone] SpringTali MD Unavailable [phone] Alejandro Tirado MD Unavailable Blanche [place] CNP Unavailable Encounter Details Date Type Department Care Team (Late st Contact Info) Description 11/03/2022 Procedure Pass [facility] Cardiovascular And Interventional Radiology 30 [place] [address] Social History Tobacco Use Types Packs/Day Years [...] st Contact Info) Description 11/23/2024 Procedure Pass [address] [address] 10/06/2025 11:00 AM EDT Appointment [address] [address] Lizzy Huber MD [address] [place] [address] [email or web address] documented as of this encounter Visit Diagnoses Not on filedocumented in this encounter Additional Health Concerns Assessment Noted Time PHQ-9 Depression Total Score: 18 022 10:26 AM EST PHQ-2 Depression Total Score: 4 05/07/20 22 10:27 AM EST documented as of this encounter Care Teams Tanker Truck Driver Relationship Specialty Start Date End Date Blanche Morris CNP [address] [place] [address] [place] [address] PCP - General Family Medicine 07/05/18 Lizzy Huber MD [address] [place] [address] Primary Oncologist Medical Oncology 10/20/22 Makenzie Mcghee MD [address] [address] General Surgery 10/25/22 Sadie Marina PA-C [address] [place] [address] Physician Cloth Doubling Machine Operator Medical Oncology 11/12/22 Mary Coates FNP [address] [place] [address] Nurse Practitioner Medical Oncology 11/17/22 Tali Guerrero MD [address] [place] [address] [phone] [email or web address] Primary Oncologist Medical Oncology 12/31/22 Alejandro Tirado MD [address] [address] Primary Oncologist Hematology and Oncology 02/06/23 08/13/23 Blanche [place], MARINA [address] [place] [address] Insurance Assigned Provider 09/04/24 documented as of this encounter Additional Source Comments The information contained in this document represents components of the legal health record. It is not the complete legal health record.[facility]
--- OUTSIDE RECORDS SUMMARY | 2025-02-27 12:20 | XMS_ITS | Encounter Summary ---
Author Organization [facility] Address [address] [place] [address] Phone Care Team Providers Care Addiction Nurse Name Role Phone Blanche [place] CNP Primary Care Provide r Lizzy Huber MD Unavailable [phone] Makenzie Mcghee MD Unavailable Sadie Marina PA-C Unavailable tom Mary Coates RAILWAY SWITCH OPERATOR Unavailable [phone] SpringTali MD Unavailable [phone] Alejandro Tirado MD Unavailable Blanche [place] CNP Unavailable Encounter Details Date Type Department Care Team (Late st Contact Info) Description 10/31/2022 Procedure Pass [facility] Cardiovascular And Interventional Radiology 30 [place] [address] Social History Tobacco Use Types Packs/Day Years [...] st Contact Info) Description 11/23/2024 Procedure Pass [address] [address] 10/06/2025 11:00 AM EDT Appointment [address] [address] Lizzy Huber MD [address] [place] [address] documented as of this encounter Visit Diagnoses Not on filedocumented in this encounter Additional Health Concerns Assessment Noted Time PHQ-9 Depression Total Score: 18 022 10:26 AM EST PHQ-2 Depression Total Score: 4 05/07/20 22 10:27 AM EST documented as of this encounter Care Teams Addiction Nurse Relationship Specialty Start Date End Date Blanche [place] CNP [address] [place] [address] [place] [address] PCP - General Family Medicine 07/05/18 Lizzy Huber MD [address] [place] [address] Primary Oncologist Medical Oncology 10/20/22 Makenzie Mcghee MD [address] [address] General Surgery 10/25/22 Sadie Marina PA-C [address] [place] [address] Physician Linen Room Supervisor Medical Oncology 11/12/22 Mary Coates FNP [address] [place] [address] Nurse Practitioner Medical Oncology 11/17/22 Tali Guerrero MD [address] [place] [phone] [email or web address] Primary Oncologist Medical Oncology 12/31/22 Alejandro Tirado MD [address] [address] Primary Oncologist Hematology and Oncology 02/06/23 08/13/23 Blanche [place], MARINA [address] [place] [address] Insurance Assigned Provider 09/04/24 documented as of this encounter Additional Source Comments The information contained in this document represents components of the legal health record. It is not the complete legal health record.[facility]
--- OUTSIDE RECORDS SUMMARY | 2025-02-27 12:20 | XMS_ITS | Encounter Summary ---
Author Organization [facility] Address [address] [place] [address] Phone Care Team Providers Care Finance Teacher Name Role Phone Blanche [place] CNP Primary Care Provide r Lizzy Huber MD Unavailable Makenzie Mcghee MD Unavailable Sadie Marina PA-C Unavailable tom Mary Coates PRIVATE BRANCH EXCHANGE OPERATOR Unavailable Tali Guerrero MD Unavailable [phone] Blanche [place] CNP Unavailable Encounter Details Date Type Department Care Team (Late st Contact Info) Description 12/02/2023 Procedure Pass [facility] - [address] [address] Social History Tobacco Use Types Packs/Day Years [...] you interested in more education? Not on nciki e 09/25/2022 Are you concerned about learning? [...] st Contact Info) Description 11/23/2024 Procedure Pass [address] [address] 10/06/2025 11:00 AM EDT Appointment [address] [address] Lizzy Huber MD [address] [place] [address] [email or web address] documented as of this encounter Visit Diagnoses Not on filedocumented in this encounter Additional Health Concerns Assessment Noted Time PHQ-9 Depression Total Score: 18 022 10:26 AM EST PHQ-2 Depression Total Score: 4 05/07/20 22 10:27 AM EST documented as of this encounter Care Teams Finance Teacher Relationship Specialty Start Date End Date Blanche Morris CNP [address] [place] [address] [place] [address] PCP - General Family Medicine 07/05/18 Lizzy Huber MD [address] [place] [address] Primary Oncologist Medical Oncology 10/20/22 Makenzie Mcghee MD [address] [address] [email or web address] General Surgery 10/25/22 Sadie Marina PA-C [address] [address] [email or web address] Physician Pepper Picker Medical Oncology 11/12/22 Mary Coates FNP [address] [place] [address] [email or web address] Nurse Practitioner Medical Oncology 11/17/22 Tali Guerrero MD [address] [place] [phone] [email or web address] Primary Oncologist Medical Oncology 12/31/22 Blanche [place] CNP [address] [place] [address] [email or web address] Insurance Assigned Provider 09/04/24 documented as of this encounter Additional Source Comments The information contained in this document represents components of the legal health record. It is not the complete legal health record.[facility]
--- OUTSIDE RECORDS SUMMARY | 2025-02-27 12:20 | XMS_ITS | Encounter Summary ---
Author Organization [facility] Address [address] [place] [address] Phone Care Team Providers Care Electrical Designer Name Role Phone [place]anche [place] CNP Primary Care Provide r Lizzy Huber MD Unavailable [phone] Makenzie Mcghee MD Unavailable Sadie Marina PA-C Unavailable tom Mary Coates ESCORT SERVICE ATTENDANT Unavailable [phone] DoraTali MD Unavailable [phone] Blanche [place] CNP Unavailable Encounter Details Date Type Department Care Team (Latest Contact Info) Description 11/23/2024 Transcribe Orders Virtual Department [address] [place] [address] Lizzy Huber MD 30 [place] [address] [email or web address] Encounter for screening mammogram for malignant neoplasm of breast (Primary Dx) Social History Tobacco Use Types [...] st Contact Info) Description 11/23/2024 Procedure Pass [address] [address] 10/06/2025 11:00 AM EDT Appointment [address] [address] Lizzy Huber MD [address] [place] [address] [email or web address] Scheduled Orders Name Type Priority Associated Diagnoses Orde r Schedule Mammogram Screening (Left) Imaging Routine Encounter for screening mammogram for malignant neoplasm of breast Expected: 11/23/2024, Expires: 11/23/2026 documented as of this encounter Visit Diagnoses Diagnosis Encounter for screening mammogram for malignant neoplasm of breast- Primary documented in this encounter Additional Health Concerns Assessment Noted Time PHQ-9 Depression Total Score: 10 025 8:10 AM EST PHQ-2 Depression Total Score: 4 06/02/19 25 8:10 AM EST documented as of this encounter Care Teams Electrical Designer Relationship Specialty Start Date End Date Blanche [place] CNP [address] [place] [address] [email or web address] PCP - General Family Medicine 07/05/18 Lizzy Huber MD [address] [place] [address] Primary Oncologist Medical Oncology 10/20/22 Makenzie Mcghee MD [address] [place] [address] General Surgery 10/25/22 Sadie Marina PA-C [address] [place] [address] Physician Catalyst Operator Gasoline Medical Oncology 11/12/22 Mary Coates FNP [address] [place] [address] Nurse Practitioner Medical Oncology 11/17/22spring, Tali Jimenez MD [address] [place] [phone] [email or web address] Primary Oncologist Medical Oncology 12/31/22 Blanche [place], MARINA [address] [place] [address] [email or web address] Insurance Assigned Provider 09/04/24 documented as of this encounter Additional Source Comments The information contained in this document represents components of the legal health record. It is not the complete legal health record.[facility]
--- OUTSIDE RECORDS SUMMARY | 2025-02-27 12:20 | XMS_ITS | Encounter Summary ---
Author Organization [facility] Address [address] [place] [address] Phone Care Team Providers Care Collection Support Specialist Name Role Phone Blanche Morris CNP Primary Care Provide r Lizzy Huber MD Unavailable Makenzie Mcghee MD Unavailable Sadie Marina PA-C Unavailable tom Mary Coates DATA VISUALIZATION DEVELOPER Unavailable Tali Guerrero MD Unavailable [phone] Blanche Morris CNP Unavailable Encounter Details Date Type Department Care Team (Late st Contact Info) Description 09/15/2023 Procedure Pass [facility], [address] [address] Social History Tobacco Use Types Packs/Day Years [...] st Contact Info) Description 11/23/2024 Procedure Pass [address] [address] 10/06/2025 11:00 AM EDT Appointment [address] [address] Lizzy Huber MD [address] [place] [address] [email or web address] documented as of this encounter Visit Diagnoses Not on filedocumented in this encounter Additional Health Concerns Assessment Noted Time PHQ-9 Depression Total Score: 18 022 10:26 AM EST PHQ-2 Depression Total Score: 4 05/07/20 22 10:27 AM EST documented as of this encounter Care Teams Collection Support Specialist Relationship Specialty Start Date End Date Blanche Morris CNP [address] [place] [address] [place] [address] PCP - General Family Medicine 07/05/18 Lizzy Huber MD [address] [place] [address] Primary Oncologist Medical Oncology 10/20/22 Makenzie Mcghee MD [address] [address] [email or web address] General Surgery 10/25/22 Sadie Marina PA-C [address] [address] [email or web address] Physician Frame Gate Mortiser Operator Medical Oncology 11/12/22 Mary Coates FNP [address] [place] [address] [email or web address] Nurse Practitioner Medical Oncology 11/17/22 Tali Guerrero MD [address] [place] [phone] [email or web address] Primary Oncologist Medical Oncology 12/31/22 Blanche Morris CNP [address] [place] [address] [email or web address] Insurance Assigned Provider 09/04/24 documented as of this encounter Additional Source Comments The information contained in this document represents components of the legal health record. It is not the complete legal health record.[facility]
--- OUTSIDE RECORDS SUMMARY | 2025-02-27 12:20 | XMS_ITS | Encounter Summary ---
Author Organization [facility] Address [address] [place] [address] Phone Care Team Providers Care Chairman & Co Founder Name Role Phone Dioni Webb DO Primary Care Provider [phone] Blanche Morris CNP Primary Care Provide r Dioni Webb DO Unavailable Dioni Webb DO Unavailable Lizzy Huber MD Unavailable Unavailable Lizzy Huber MD Unavailable Makenzie Mcghee MD Unavailable Sadie MarinaC Unavailable tom Mary Coates FIXED INCOME TRADING VICE PRESIDENT Unavailable [phone] Tali Guerrero MD Unavailable [phone] Alejandro Tirado MD Unavailable Blanche Morris CNP Unavailable [phone] Encounter Details Date Type Department Care Team (Late st Contact Info) Description 06/07/2018 Ancillary Orders Virtual Department 30 [place] [address] Blanche Morris, MARINA [address] [place] [address] Breast screening Social History Tobacco Use Types Packs/Day Years [...] st Contact Info) Description 11/23/2024 Procedure Pass [address] [address] 10/06/2025 11:00 AM EDT Appointment [address] [address] Lizzy Huber MD [address] [place] [address] [email or web address] documented as of this encounter Results * BI MAMMOGRAM SCREENING WITH TOMOSYNTHESIS WITH CAD (BILATERAL) (08/27/2018 10:43 AM EDT) Anatomical Region Laterality Modality Breast Left, Breast Right, Breast Bilateral Bila teral Mammography 08/27/2018 11:0 8 AM EDT Impressions 08/27/2018 11:10 AM EDT No mammographic change indicative of malignancy. Routine screening is recommended. BI-RADS CATEGORY: 2 - Benign finding. DENSITY: There are scattered fibroglandular densities. POS -CDHMAMA Narrative 08/27/2018 11:10 AM EDT Bilateral full-field digital screening mammography is obtained and read in conjunction with computer-aided detection. Tomosynthesis as well as 2-D C view imaging of both breasts in two planes also obtained. Comparison made to multiple prior, most recent 12/04/2015, and most remote 10/07/2001. No dominant mass, architectural distortion, worrisome asymmetry, or suspicious calcification is identified. No skin or nipple finding of concern is appreciated. Intramammary nodes again noted on the left. Minor right asymmetry is stable. Procedure Note Ester Bob MD - 08/27/2018 Bilateral full-field digital screening mammography is obtained and read inconjunction with computer-aided detection. Tomosynthesis as well as 2-D Cview imaging of both breasts in two planes also obtained. Comparison madeto multiple prior, most recent 12/04/2015, and most remote 10/07/2001. No dominant mass, architectural distortion, worrisome asymmetry, orsuspicious calcification is identified. No skin or nipple finding ofconcern is appreciated. Intramammary nodes again noted on the left. Minorright asymmetry is stable. IMPRESSION: No mammographic change indicative of malignancy. Routine screening isrecommended. BI-RADS CATEGORY: 2 - Benign finding. DENSITY: There are scattered fibroglandular densities. POS -CDHMAMA Blanche Morris CABINET FINISHER IM MG EXAMS Final Result documented in this encounter Visit Diagnoses Diagnosis Breast screening Breast screening, unspecified Breast screening Breast screening, unspecified documented in this encounter Additional Health Concerns Assessment Noted Time PHQ-2 Depression Total Score: 3 05/14/20 18 11:14 AM EST documented as of this encounter Care Teams Chairman & Co Founder Relationship Specialty Start Date End Date Dioni Webb DO [address] [place] [address] PCP - General 03/19/17 07/04/18 Blanche Morris CNP [address] [place] [address] PCP - General Family Medicine 07/05/18 Dioni Webb DO [address] [place] [address] [email or web address] Insurance Assigned Provider 10/02/18 12/11/18 Dioni Webb DO [address] [place] [address] [email or web address] Insurance Assigned Provider 09/07/19 06/09/20 Lizzy Huber MD Primary Oncologist Medical Oncology 10/10/22 10/19/22 Lizzy Huber MD [address] [place] [address] [email or web address] Primary Oncologist Medical Oncology 10/20/22 Makenzie Mcghee MD [address] [place] [address] [email or web address] General Surgery 10/25/22 Sadie Marina PA-C [address] [place] [address] [email or web address] Physician Xerox Machine Mechanic Medical Oncology 11/12/22 Mary Coates FNP [address] [place] [address] [email or web address] Nurse Practitioner Medical Oncology 11/17/22 Tali Guerrero MD [address] [place] [phone] [email or web address] Primary Oncologist Medical Oncology 12/31/22 Alejandro Tirado MD [address] [place] [address] Primary Oncologist Hematology and Oncology 02/06/23 08/13/23 Blanche Morris [facility] [address] [place] [address] [email or web address] Insurance Assigned Provider 09/04/24 documented as of this encounter Additional Source Comments The information contained in this document represents components of the legal health record. It is not the complete legal health record.[facility]
--- OUTSIDE RECORDS SUMMARY | 2025-02-27 12:20 | XMS_ITS | Encounter Summary ---
Author Organization [facility] Address [address] [place] [address] Phone Care Team Providers Care Physiotherapy Practice Manager Name Role Phone Dioni Webb DO Primary Care Provider [phone] Blanche Morris CNP Primary Care Provide r Dioni Webb DO Unavailable Dioni Webb DO Unavailable Lizzy Huber MD Unavailable Unavailable Lizzy Huber MD Unavailable [phone] Makenzie Mcghee MD Unavailable [phone] Sadie Marina PA-C Unavailable pnrichard Mary Coates TITLE ONE TEACHER Unavailable [phone] Tali Guerrero MD Unavailable [phone] Alejandro Tirado MD Unavailable Blanche Morris CNP Unavailable Encounter Details Date Type Department Care Team (Late st Contact Info) Description 06/15/2018 Procedure Pass [facility], [address] [address] Social History Tobacco Use Types Packs/Day Years [...] Contact Info) Description 11/23/2024 Procedure Pass [address] [address] 10/06/2025 11:00 AM EDT Appointment [address] [address] Lizzy Huber MD [address] [place] [address] [email or web address] documented as of this encounter Visit Diagnoses Not on filedocumented in this encounter Additional Health Concerns Assessment Noted Time PHQ-2 Depression Total Score: 3 05/14/20 18 11:14 AM EST documented as of this encounter Care Teams Physiotherapy Practice Manager Relationship Specialty Start Date End Date Dioni Webb DO [address] [place] [address] PCP - General 03/19/17 07/04/18 Blanche Morris, MARINA [address] [place] [address] PCP - General Family Medicine 07/05/18 Dioni Webb DO 29 [place] [address] Insurance Assigned Provider 10/02/18 12/11/18 Dioni Webb DO [address] [place] [address] [email or web address] Insurance Assigned Provider 09/07/19 06/09/20 Lizzy Huber MD Primary Oncologist Medical Oncology 10/10/22 10/19/22 Lizzy Huber MD [address] [place] [address] [email or web address] Primary Oncologist Medical Oncology 10/20/22 Makenzie Mcghee MD [address] [place] [address] [email or web address] General Surgery 10/25/22 Sadie Marina PA-C [address] [place] [address] [email or web address] Physician Cylinder Block Hole Reliner Medical Oncology 11/12/22 Mary Coates FNP [address] [place] [address] [email or web address] Nurse Practitioner Medical Oncology 11/17/22 Tali Guerrero MD [address] [place] [phone] [email or web address] Primary Oncologist Medical Oncology 12/31/22 Alejandro Tirado MD [address] [place] [address] [email or web address] Primary Oncologist Hematology and Oncology 02/06/23 08/13/23 Blanche Morris, BRIDGE IRONWORKER HELPER [address] [place] [address] [email or web address] Insurance Assigned Provider 09/04/24 documented as of this encounter Additional Source Comments The information contained in this document represents components of the legal health record. It is not the complete legal health record.[facility]
--- OUTSIDE RECORDS SUMMARY | 2025-02-27 12:20 | XMS_ITS | Encounter Summary ---
Author Organization [facility] Address [address] [place] [address] Phone Care Team Providers Care Bottling Attendant Name Role Phone Blanche Morris CNP Primary Care Provide r Lizzy Huber MD Unavailable Makenzie Mcghee MD Unavailable Sadie Marina PA-C Unavailable tom Mary Coates HEMODIALYSIS TECHNICIAN Unavailable SpringTali MD Unavailable [phone] Alejandro Tirado MD Unavailable Blanche Morris CNP Unavailable [phone] Encounter Details Date Type Department Care Team (Late st Contact Info) Description 11/03/2022 Procedure Pass OR Admitting Dept - Virtual Department [address] [place] [address] Social History Tobacco Use Types Packs/Day Years [...] st Contact Info) Description 11/23/2024 Procedure Pass [address] [address] 10/06/2025 11:00 AM EDT Appointment [address] [address] Lizzy Huber MD [address] [place] [address] documented as of this encounter Visit Diagnoses Not on filedocumented in this encounter Additional Health Concerns Assessment Noted Time PHQ-9 Depression Total Score: 18 022 10:26 AM EST PHQ-2 Depression Total Score: 4 05/07/20 22 10:27 AM EST documented as of this encounter Care Teams Bottling Attendant Relationship Specialty Start Date End Date Blanche Morris CNP [address] [place] [address] [place] [address] PCP - General Family Medicine 07/05/18 Lizzy Huber MD [address] [place] [address] Primary Oncologist Medical Oncology 10/20/22 Makenzie Mcghee MD [address] [address] General Surgery 10/25/22 Sadie Marina PA-C [address] [place] [address] Physician Pan Pusher Medical Oncology 11/12/22 Mayr Coates FNP [address] [place] [address] Nurse Practitioner Medical Oncology 11/17/22 Tali Guerrero MD [address] [place] [phone] Primary Oncologist Medical Oncology 12/31/22 Alejandro Tirado MD [address] [address] Primary Oncologist Hematology and Oncology 02/06/23 08/13/23 Blanche Morris, MARINA [address] [place] [address] Insurance Assigned Provider 09/04/24 documented as of this encounter Additional Source Comments The information contained in this document represents components of the legal health record. It is not the complete legal health record.[facility]
--- OUTSIDE RECORDS SUMMARY | 2025-02-27 12:20 | XMS_ITS | Encounter Summary ---
Author Organization [facility] Address [address] [place] [address] Phone Care Team Providers Care Shell Assembler Name Role Phone Blanche Morris CNP Primary Care Provide r Lizzy Huber MD Unavailable Makenzie Mcghee MD Unavailable Sadie MarinaC Unavailable [email or web address] Mary Coates GEAR CODING MACHINE OPERATOR Unavailable [phone] Hun[place]villeTali MD Unavailable [phone] Alejandro Tirado MD Unavailable Blanche Morris CNP Unavailable [phone] Encounter Details Date Type Department Care Team (Late st Contact Info) Description 07/08/2023 Transcribe Orders Virtual Department [address] [place] [address] Blanche Morris, HEALTH INSURANCE SPECIALIST [address] [place] [address] [email or web address] Breast screening (Primary Dx) Social History Tobacco Use Types [...] st Contact Info) Description 11/23/2024 Procedure Pass [address] [address] 10/06/2025 11:00 AM EDT Appointment [address] [address] Lizzy Huber MD [address] [place] [address] [email or web address] documented as of this encounter Results * BI MAMMOGRAM SCREENING WITH TOMOSYNTHESIS WITH CAD (LEFT) (09/25/2023 11:33 AM EDT) Anatomical Region Laterality Modality Breast Left, Breast Bilateral Left Ma mmography 09/25/2023 10:1 2 PM EDT Impressions 09/27/2023 9:13 AM EDT No mammographic evidence of malignancy in the left breast. Annual screening mammography is recommended. BI-RADS 1 NEGATIVE The patient will be notified of the results and recommendations. Narrative 09/27/2023 9:13 AM EDT BI MAMMOGRAM SCREENING WITH TOMOSYNTHESIS WITH CAD (LEFT) Additional patient information: Screening. Right Mastectomy COMPARISON: Comparison is made with relevant prior imaging. Breast composition: There are scattered areas of fibroglandular density. FINDINGS: There has been no change in the mammographic findings since previous examination. No abnormal masses, suspicious calcifications, or other significant findings are identified mammographically in the left breast. Procedure Note Rani Motley MD, PhD - 09/27/2023 BI MAMMOGRAM SCREENING WITH TOMOSYNTHESIS WITH CAD (LEFT) Additional patient information: Screening. Right Mastectomy COMPARISON: Comparison is made with relevant prior imaging. Breast composition: There are scattered areas of fibroglandular density. FINDINGS: There has been no change in the mammographic findings since previousexamination. No abnormal masses, suspicious calcifications, or other significantfindings are identified mammographically in the left breast. IMPRESSION: No mammographic evidence of malignancy in the left breast. Annual screening mammography is recommended. BI-RADS 1 NEGATIVE The patient will be notified of the results and recommendations. Blanche Morris CNP IMG MG EXAMS Final Result documented in this encounter Visit Diagnoses Diagnosis Breast screening- Primary Breast screening, unspecified Breast screening Breast screening, unspecified documented in this encounter Additional Health Concerns Assessment Noted Time PHQ-9 Depression Total Score: 18 022 10:26 AM EST PHQ-2 Depression Total Score: 4 05/07/20 22 10:27 AM EST documented as of this encounter Care Teams Shell Assembler Relationship Specialty Start Date End Date Blanche Morris CNP [address] [facility] [place] [address] PCP - General Family Medicine 07/05/18 Lizzy Huber MD [address] [place] [address] Primary Oncologist Medical Oncology 10/20/22 Makenzie Mcghee MD [address] [place] [address] General Surgery 10/25/22 Sadie Marina PA-C [address] [place] [address] Physician Float Tender Medical Oncology 11/12/22 Mayr Coates FNP [address] [place] [address] Nurse Practitioner Medical Oncology 11/17/22 [place] MD [address] [place] [phone] Primary Oncologist Medical Oncology 12/31/22 Alejandro Tirado MD [address] [address] Primary Oncologist Hematology and Oncology 02/06/23 08/13/23 Blanche Morris, MARINA [address] [place] [address] Insurance Assigned Provider 09/04/24 documented as of this encounter Additional Source Comments The information contained in this document represents components of the legal health record. It is not the complete legal health record.[facility]
--- OUTSIDE RECORDS SUMMARY | 2025-02-27 12:20 | XMS_ITS | Encounter Summary ---
Author Organization [facility] Address [address] [place] [address] Phone Care Team Providers Care Tractor Mechanic Helper Name Role Phone Blanche Morris CNP Primary Care Provide r Dioni Webb DO Unavailable Dioni Webb DO Unavailable Lizzy Huber MD Unavailable Unavailable Lizzy Huber MD Unavailable [phone] Makenzie Mcghee MD Unavailable Sadie Marina PA-C Unavailable tom Mary Coates ATTRACTION ATTENDANT Unavailable Tali Guerrero MD Unavailable [phone] Alejandro Tirado MD Unavailable [phone] Blanche Morris CNP Unavailable Encounter Details Date Type Department Care Team (Late st Contact Info) Description 08/19/2018 Transcribe Orders [facility] [address] [place] [address] Blanche Morris CNP 29 [facility] [place] [address] [email or web address] Social History Tobacco Use Types Packs/Day Years [...] st Contact Info) Description 11/23/2024 Procedure Pass [address] [address] 10/06/2025 11:00 AM EDT Appointment [address] [address] Lizzy Huber MD [address] [place] [phone] [email or web address] documented as of this encounter Visit Diagnoses Not on filedocumented in this encounter Additional Health Concerns Assessment Noted Time PHQ-2 Depression Total Score: 3 05/14/20 18 11:14 AM EST documented as of this encounter Care Teams Tractor Mechanic Helper Relationship Specialty Start Date End Date Blanche Morris CNP [address] [place] [address] PCP - General Family Medicine 07/05/18 Dioni Webb DO [address] [place] [address] Insurance Assigned Provider 10/02/18 12/11/18 Dioni Webb DO [address] [place] [phone] Insurance Assigned Provider 09/07/19 06/09/20 Lizzy Huber MD Primary Oncologist Medical Oncology 10/10/22 10/19/22 Lizzy Huber MD [address] [place] [address] Primary Oncologist Medical Oncology 10/20/22 Makenzie Mcghee MD [address] [place] [address] General Surgery 10/25/22 Sadie Marina PA-C [address] [place] [address] [email or web address] Physician Montessori Program Director Medical Oncology 11/12/22 Mary Coates FNP [address] [place] [address] Nurse Practitioner Medical Oncology 11/17/22 Tali Guerrero MD [address] [place] [phone] Primary Oncologist Medical Oncology 12/31/22 Alejandro Tirado MD [address] [place] [address] Primary Oncologist Hematology and Oncology 02/06/23 08/13/23 Blanche Morris, MARINA [address] [place] [address] Insurance Assigned Provider 09/04/24 documented as of this encounter Additional Source Comments The information contained in this document represents components of the legal health record. It is not the complete legal health record.[facility]
--- OUTSIDE RECORDS SUMMARY | 2025-02-27 12:20 | XMS_ITS | Encounter Summary ---
Author Organization [facility] Address [address] [place] [phone] Phone Care Team Providers Care Linux System Engineer Name Role Phone Blanche Morris CNP Primary Care Provide r Lizzy Huber MD Unavailable Makenzie Mcghee MD Unavailable [phone] Sadie MarinaC Unavailable tom Mary Coates CUFFING MACHINE OPERATOR Unavailable RoachdaleTali MD Unavailable [phone] Blanche Morris CNP Unavailable Encounter Details Date Type Department Care Team (Latest Contact Info) Description 09/15/2024 Transcribe Orders Virtual Department [address] [place] [address] Horace Lemus, DO [address] [place] [address] [email or web address] Unilateral primary osteoarthritis, left hip (Primary Dx) Social History Tobacco Use Types Packs/Day Years Used Date Smoking Tobacco: Former Cigarettes 0.3 37 1 07/04/1969 - 05/03/2007 Smokeless Tobacco: Never Alcohol Use Standard Drinks/Week Comments Yes 0 (1 standard drink = 0.6 oz pur e alcohol) very occasionally Home Health Assessment: Transportation Answer Date Recorded [...] st Contact Info) Description 11/23/2024 Procedure Pass [address] [address] 10/06/2025 11:00 AM EDT Appointment [address] [address] Lizzy Huber MD [address] [place] [address] [email or web address] documented as of this encounter Results * XR HIP 2 VW LEFT PLUS PELVIS (09/30/2024 11:26 AM EDT) Anatomical Region Laterality Modality Hip, Pelvis Computed Radiogr aphy 10/01/2024 5:14 PM EDT Impressions 10/01/2024 5:15 PM EDT Moderate left hip osteoarthritis. Narrative 10/01/2024 5:15 PM EDT XR HIP 2 VW LEFT PLUS PELVIS REQUESTED INDICATION: Outside Radiology Order; osteoarthritis COMPARISON: XR HIP 2 VW RIGHT PLUS PELVIS FINDINGS: PELVIS: Pelvic ring intact. No displaced fracture. Degenerative changes of the lower lumbar spine, sacroiliac joints, and pubic symphysis. RIGHT HIP: Right total hip arthroplasty with screw fixated acetabular component. Hardware intact and in expected alignment. LEFT HIP: Moderate hip joint space narrowing with subchondral sclerosis and bony proliferative change. Procedure Note Maryse Cosme MD - 10/01/2024 XR HIP 2 VW LEFT PLUS PELVIS REQUESTED INDICATION: Outside Radiology Order; osteoarthritis COMPARISON: XR HIP 2 VW RIGHT PLUS PELVIS FINDINGS: PELVIS: Pelvic ring intact. No displaced fracture. Degenerative changes ofthe lower lumbar spine, sacroiliac joints, and pubic symphysis. RIGHT HIP: Right total hip arthroplasty with screw fixated acetabularcomponent. Hardware intact and in expected alignment. LEFT HIP: Moderate hip joint space narrowing with subchondral sclerosisand bony proliferative change. IMPRESSION: Moderate left hip osteoarthritis. Horace Lemus DO IMG XR PELVIS Final Result documented in this encounter Visit Diagnoses Diagnosis Unilateral primary osteoarthritis, left hip- Primary Unilateral primary osteoarthritis, left hip documented in this encounter Additional Health Concerns Assessment Noted Time PHQ-9 Depression Total Score: 10 025 8:10 AM EST PHQ-2 Depression Total Score: 4 06/02/19 25 8:10 AM EST documented as of this encounter Care Teams Linux System Engineer Relationship Specialty Start Date End Date Blanche Morris CNP [address] [place] [address] [place] [address] [email or web address] PCP - General [facility] 07/05/18 Lizzy Huber MD [address] [place] [address] Primary Oncologist Medical Oncology 10/20/22 Makenzie Mcghee MD [address] [place] [phone] [email or web address] General Surgery 10/25/22 Sadie Marina PA-C [address] [place] [phone] [email or web address] Physician Filler Shredder Machine Medical Oncology 11/12/22 Mary Coates FNP [address] [place] [address] [email or web address] Nurse Practitioner Medical Oncology 11/17/22 Tali Guerrero MD [address] [place] [phone] [email or web address] Primary Oncologist Medical Oncology 12/31/22 Blanche Morris CNP [address] [place] [address] Insurance Assigned Provider 09/04/24 documented as of this encounter Additional Source Comments The information contained in this document represents components of the legal health record. It is not the complete legal health record.[facility]
--- OUTSIDE RECORDS SUMMARY | 2025-02-27 12:20 | XMS_ITS | Encounter Summary ---
Author Organization [facility] Address [address] [place] [address] Phone Care Team Providers Care Mowing Machine Operator Name Role Phone Blanche Morris CNP Primary Care Provide r Lizzy Huber MD Unavailable Makenzie Mcghee MD Unavailable Sadie Marina PA-C Unavailable tom Mary Coates REPORT SPECIALIST Unavailable BluebellTali MD Unavailable [phone] Blanche Morris CNP Unavailable Encounter Details Date Type Department Care Team (Late st Contact Info) Description 01/29/2024 Procedure Pass [facility] Endoscopy Admitting Dept Virtual Department [address] [place] [id number] Social History Tobacco Use Types Packs/Day Years [...] Contact Info) Description 11/23/2024 Procedure Pass [address] [address] 10/06/2025 11:00 AM EDT Appointment [address] [address] Lizzy Huber MD [address] [place] [phone] [email or web address] documented as of this encounter Visit Diagnoses Not on filedocumented in this encounter Additional Health Concerns Assessment Noted Time PHQ-9 Depression Total Score: 18 022 10:26 AM EST PHQ-2 Depression Total Score: 4 05/07/20 22 10:27 AM EST documented as of this encounter Care Teams Mowing Machine Operator Relationship Specialty Start Date End Date Blanche Morris CNP [address] [place] [address] [email or web address] PCP - General [facility] Medicine 07/05/18 Lizzy Huber MD [address] [place] [address] [email or web address] Primary Oncologist Medical Oncology 10/20/22 Makenzie Mcghee MD [address] [address] [email or web address] General Surgery 10/25/22 Sadie Marina PA-C [address] [place] [phone] [email or web address] Physician Loom Cleaner Medical Oncology 11/12/22 Mary Coates FNP [address] [place] [address] [email or web address] Nurse Practitioner Medical Oncology 11/17/22 Tali Guerrero MD [address] [place] [phone] [email or web address] Primary Oncologist Medical Oncology 12/31/22 Blanche Morris CNP [address] [place] [address] [email or web address] Insurance Assigned Provider 09/04/24 documented as of this encounter Additional Source Comments The information contained in this document represents components of the legal health record. It is not the complete legal health record.[facility]
--- OUTSIDE RECORDS SUMMARY | 2025-02-27 12:21 | XMS_ITS | Clinical Summary ---
Author Organization [facility] Address [address] [place] [id number] Phone Care Team Providers Care Window Dresser Name Role Phone Prachi Morris CNP Primary Care Provide r Lizzy Huber MD Unavailable Makenzie Mcghee MD Unavailable Sadie Marina PA-C Unavailable tom Mary Coates SOA INTEGRATION DEVELOPER Unavailable KimberlyTali MD Unavailable [phone] Prachi Morris CNP Unavailable Allergies Active Allergy Reactions Criticality Noted Date Comments Citalopram Headaches 06/07/2024 Gabapentin Dizziness 06/07/2024 Escitalopram Oxalate Headaches 06/07/2024 Nortriptyline Tremor Low 06/07/2024 Oxycodone Unknown Low 10/17/2022 Generally feels unwell after taking Mirtazapine Dizziness Low 05/18/2018 Bupropion Hcl Anxiety Low 11/13/2017 Medications ascorbic acid, vitamin C, (VITAMIN C) 500 MG tablet 04/16/2023 Active cholecalciferol , vitamin D3, 400 unit capsule Take 400 Units by mouth daily. 04/16/2023 Active cyanocobalamin (VIT B-12) 1000 MCG tablet Take 100 mcg by mouth daily. 04/16/2023 Active MAGNESIUM CITRATE ORAL Take 1 Dose by mouth 2 (two) times a day. Calm BID 04/16/2023 Active b complex vitamins capsule Take 1 capsule by mouth daily. 04/16/2023 Active acetaminophen (TYLENOL) 325 mg tablet Take 2 tablets (650 mg total) by mouth every 6 (six) hours as needed. 0 11/03/2022 Active multivitamin per tablet Take 1 tablet by mouth daily. Active Medication-Free Text CBD gummies Active albuterol 90 mcg/actuation inhaler Inhale 2 puffs into the lungs every 6 (six) hours as needed for wheezing. 8 g 06/07/2024 Active LORazepam (ATIVAN) 2 MG tabletIndicatio ns:Chronic insomnia Take 1 tablet (2 mg total) by mouth nightly at bedtime. 30 tablet 2 08/02/2024 Active LORazepam (ATIVAN) 1 MG tabletIndicatio ns:Chronic insomnia TAKE 2 TABLETS BY MOUTH ONCE DAILY AT BEDTIME NEEDED FOR ANXIETY 60 tablet 2 01/23/2025 Active Active Problems Patient Care Coordination No te Formatting of this note migh t be different from the original. Height 156.8 cm taken by RB on 10/24/2022 Problem Noted Date Diagnosed Date Hx of compression fracture of spine 05/30/2024 Overview (05/30/2024): L4 and L5 noted on MRI September 2023 Compression fracture of L4 vertebra with delayed healing 11/04/2023 Overview (06/07/2024): Noted on MRI 09/2023 - Assessment & Plan (06/07/2024 12:09 PM EST): 09/2023. No point tenderness over L 4 L5 Compression fracture of L5 vertebra with delayed healing 11/04/2023 Overview (06/07/2024): Noted on MRI 09/2023 - Assessment & Plan (06/07/2024 12:09 PM EST): 09/2023. No point tenderness over L 4 L5 Chronic bilateral low back pain without sciatica 09/15/2023 Assessment & Plan (09/15/2023 1:07 PM EDT): New onset pain with movement, no fall. Reported worsening of numbness/tingling in legs and feet and feels weaker in lower extremities since the onset of pain. Though no focal deficit found on exam, strength adequate to resistance. Pt has been treated for invasive cancer in past year and so recommend imaging to evaluate discs, nerves but also if there could be any cancer involvement Chemotherapy-induced neuropathy 09/15/2023 Assessment & Plan (06/07/2024 12:05 PM EST): Continues with peripheral neuropathy but also feels it is related to previous Lyme diagnosis Assessment & Plan (09/15/2023 1:09 PM EDT): Has experienced neuropathy with her chemotherapy which persists but feels worse with new onset back pain. Sensation reduced in both feet S/P mastectomy, right 04/17/2023 Breast cancer in female 04/14/2023 Invasive carcinoma of breast 09/30/2022 Overview (09/30/2022): Right Assessment & Plan (06/07/2024 11:36 AM EST): S/p right breast mastecomy and chemo, under the care of oncology, no recurrence Assessment & Plan (09/15/2023 1:44 PM EDT): Has been generally weak prior to and following treatment for right invasive breast cancer Assessment & Plan (03/18/2023 2:04 PM EDT): Right breast cancer under the care of oncology, pt has five more treatments but has decided to stop chemotherapy and get mastectomy History of right hip replacement 05/07/2022 Overview (05/07/2022): 2020 Assessment & Plan (06/07/2024 12:08 PM EST): Replaced in 2020 and continues to have pain despite replacement Osteopenia of multiple sites 05/05/2022 Overview (05/05/2022): 2019 - All sites Assessment & Plan (06/07/2024 12:07 PM EST): Recommend updating BMD, last done > five years ago and sustained spine compression fractures with a fall in 2023 Chronic pain syndrome 05/08/2021 Assessment & Plan (06/07/2024 12:11 PM EST): General pain syndrome not relived by meds tried. Did make her aware of low Naltrexone as a therapy used by alternative providers if she wanted to return to [facility] to discuss Assessment & Plan (05/07/2022 11:20 AM EST): Numerous join complaints and continues with right hip despite replacement. Suggest a consult with a sr. consultant, she will consider this. Assessment & Plan (05/08/2021 10:13 AM EST): Pt attributes this to chronic Lyme originally diagnosed by the [facility] in 2019 and rec'd alternatives treatments (handheld lasers, tinctures, foot baths) at a Lyme center in [facility]. She reports improvement with their treatment but continues with pain, excessive fatigue vulnerable brain , head tremor in past year. Recommend she see a therapist that deals with people with chronic pain. She plans to reach out to [facility] for therapist recommendation, though I mentioned it doesn't have to be someone who knows Lyme. Chronic fatigue 05/08/2021 Resting tremor 05/08/2021 Overview (05/07/2022): Bilateral hands and head; saw neurology - not Parkinson's, not neuro Lyme Assessment & Plan (05/07/2022 11:16 AM EST): Saw neurology, benign tremor Assessment & Plan (05/08/2021 10:06 AM EST): Recommend evaluation by neurology. She prefers to make appointment and will let us know who she sees Primary osteoarthritis of right hip 11/01/2020 Chronic right hip pain 11/01/2020 Assessment & Plan (05/07/2022 11:15 AM EST): Walking better but continues to have pain in hip Assessment & Plan (05/08/2021 10:13 AM EST): Improved following surgical repair Uterine fibroid 06/28/2018 Overview (08/24/2024): Incidental finding on CT scan 2018, u/s confirms fibroid 2024 under the care of [facility] Postural kyphosis of thoracic region 05/14/2018 Episode of recurrent major depressive disorder 0 11/13/2017 Assessment & Plan (06/07/2024 12:00 PM EST): Adverse reactions to multiple meds tried and does not want to pursue medication. She would like to see a therapy, resources provided. No intention of self-harm. She feels if pain reduced/relived her mood would improve Assessment & Plan (05/07/2022 11:13 AM EST): Depression remains significant due to less independence and less active over time and chronic pain. She has tried several antidepressants that had no effect and not interested in further medicine, she has been to therapy, not found it helpful but will reconsider. Assessment & Plan (05/08/2021 10:20 AM EST): Significantly depressed due to ongoing pain/ fatigue. She feels safe, will not harm self. Has tried a couple of meds in past and intolerant side effects and refuses to try alternatives. Does not want medicine. Recommend she see therapist which she is open to. I asked that she let me know who she establishes with as she has a resource she plans to reach out to. Asthma 06/10/2017 Assessment & Plan (06/07/2024 12:14 PM EST): No exacerbations but likes to have an inhaler on hand if gets a resp illness Assessment & Plan (05/07/2022 11:13 AM EST): Stable, wants inhaler on hand, no flares Chronic insomnia 06/10/2017 Assessment & Plan (06/07/2024 12:14 PM EST): Longstanding. Gets reciprocal effect from all sleep aids tried by sleep medicine. Has been on Ativan for many years and so may be developing tolerance and the 1 mg dose less effective. Will do a month trial of Ativan 2 mg nightly and see if it helps her get better sleep duration without daytime sleepiness nor increase her risk for falls. We will f/u on this dose in a month Assessment & Plan (05/07/2022 11:13 AM EST): Ativan nightly, other sleep aids have had reciprocal effect Assessment & Plan (05/08/2021 10:17 AM EST): Reciprocal effect from other agents including ones prescribed by sleep medicine in distant past. Using Ativan nightly and only gets four hours max sleep Assessment & Plan (06/12/2017 12:09 PM EST): Affecting mood, only effective med to date is Lorazepam, she has tried multiple agents through sleep medicine including gabapentin, Ambien and trazodone with opposite effect. She does not want to resume daily Lorazepam as it took her months to get off the med when last tried over a year ago. She is considering alternative supplements but cautioned her that they may not be safe Resolved Problems Problem Noted Date Diagnosed Date Resolved Date Abscess of back 03/18/2023 06/07/2024 Assessment & Plan (03/18/2023 2:05 PM EDT): New abscess of skin of back, recommend surgery eval and I & D, referred. We will call to get soonest available appt Subareolar mass of right breast 09/18/2022 06/07/2024 Assessment & Plan (09/18/2022 11:08 AM EDT): New 5 cm mass of right breast visible on gross observation, firm, mobile, tender, no adenopathy. Retraction of nipple with raising arms. Discussed exam and concern for malignancy. Recommend prompt imaging. Lyme disease, unspecified 01/02/2021 Assessment & Plan (05/08/2021 10:11 AM EST): Pt attributes much of what is she is feeling to Lyme Assessment & Plan (01/02/2021 9:39 AM EDT): Dx'd by [facility] and under treatment at specialty clinic with some improvement in sx but has continued systemic sx ongoing. Ankle fracture 12/30/2020 05/07/2022 Overview (05/08/2021): Right (occurred while rehabbing from right hip surgery Assessment & Plan (05/08/2021 10:16 AM EST): Right (occurred while rehabbing from right hip surgery. She is working with PT, declines to use narcotic analgesics. Taking Tylenol and topical analgesic Incidental adrenal cortical adenoma 06/28/2018 05/07/2022 Overview (06/28/2018): 2019 - Lipid rich , 3 cm Assessment & Plan (08/05/2018 10:49 AM EST): This is a 67 y.o. female who presents to [facility] for consultation for adrenal nodule. We discussed today the radiographic finding of an incidentally discovered adrenal mass/nodule. We reviewed that with the increased frequency of abdominal imaging, incidental findings of the adrenal glands are becoming quite common, ranging from 1-10% of all scans. We discussed that the two major issues are determining the malignant potential of each finding, and whether or not it hypersecretes adrenal hormones that may contribute to adverse cardiometabolic consequences. We reviewed that the vast majority of adrenal masses are benign and that this can usually be deciphered on the basis of the radiology - in this case, the radiographic findings are supportive of a benign lesion. Depending on the size of the benign entity, we sometimes monitor it for a short duration of time to ensure no suspicious growth or changes; however, there is no strong evidence for long-term imaging surveillance of benign and stable masses. We also discussed that even though an adrenal mass may be benign, it may still hypersecrete hormones such as cortisol, and therefore, biochemical testing should be conducted to evaluate this. Discussed the likelihood of false positives and instructions given to patient regarding circumstances and substances to avoid prior to and during testing. One matter of concern is the patient's severe anxeity and poor sleep patterns which will raise the risk of false positives. Discussed that this will need to be followed by repeat testing. Reviewed instructions for DST and patient verbalized understanding of the plan. Based on these results, we will determine next steps. If findings remain reassuring for benign adrenal adenoma, plan to reimage in 6 months (will schedule for Dec 2018), then annually for 1-2 years with repeat functional studies annually for at least 2 years. Encounters Date Type Department Care Team Description 02/11/2025 10:07 AM EDT - 02/11/2025 11:59 PM EDT Hospital Encounter [address] [id number] Juan Diego Wynn MD Discharge Disposition: Home or Self Care 01/23/2025 Refill [facility] [address] [place] [address] Prachi Morris CNP Medication Refill 01/20/2025 9:51 AM EDT - 01/20/2025 11:59 PM EDT Hospital Encounter [address] [address] Prachi Morris CNP Discharge Disposition: Home or Self Care 01/17/2025 Procedure Pass [address] [address] 01/17/2025 Transcribe Orders Virtual Department [address] [place] [id number] Juan Diego Wynn MD Spinal stenosis, lumbar region without neurogenic claudication (Primary Dx); Other intervertebral disc degeneration, lumbar region without mention of lumbar back pain or lower extremity pain from Last 3 Months Immunizations No known immunizations Family History Medical History Relation Comments Aortic aneurysm Father Lung disease Father Suicide Maternal Grandfather Heart defect Maternal Grandmother Cancer Mother Lung cancer Mother No Known Problems Paternal Grandfather Emphysema Paternal Grandmother Lung disease Paternal Grandmother Breast cancer Neg Hx Relation Status Comments Father Maternal Grandfather Maternal Grandmother Mother Paternal Grandfather Paternal Grandmother Social History Tobacco Use Types Packs/Day Years Used Date Smoking Tobacco: Former Cigarettes 0.3 37 1 07/04/1969 - 05/03/2007 Smokeless Tobacco: Never Tobacco Cessation:Counseling Given: Not Answered Alcohol Use Standard Drinks/Week Comments Yes 0 [...] Orientation Straight 12/26/2022 8: 56 PM EDT Last Filed Vital Signs Vital Sign Reading Time Taken Comments Blood Pressure 106/69 10/07/2024 11:00 AM EDT Pulse 73 10/07/2024 11:00 AM EDT Temperature 36.6 C (97.9 F) 10/07/2024 11:00 AM EDT Respiratory Rate 20 09/07/2024 9:44 AM EDT Oxygen Saturation 97% 10/07/2024 11:00 AM EDT Inhaled Oxygen Concentration - - Weight 56.2 kg (124 lb) 02/04/2025 4:01 PM EDT Height 154.9 cm (5' 1 ) 02/04/2025 4:01 PM EDT Body Mass Index 23.43 02/04/2025 4:01 PM EDT Plan of Treatment Upcoming Encounters Date Type Department Care Team (Late st Contact Info) Description 11/23/2024 Procedure Pass [address] [address] 10/06/2025 11:00 AM EDT Appointment [address] [address] Lizzy Huber MD [address] [place] [phone] [email or web address] Health Maintenance Due Date Last Done Comments Adult Td,Tdap Booster 1950 PNEUMOCOCCAL VACCINES (50+ years) (1 of 2 - PCV) 11/05/1970 ZOSTER VACCINES (1 of 2) 11/05/1970 COLOGUARD 11/05/1996 FIT TEST 11/05/1996 FOBT 11/05/1996 SIGMOIDOSCOPY 11/05/1996 VIRTUAL COLONOSCOPY 11/05/1996 RSV VACCINE (1 - Risk 60-74 years 1-dose series) 2011 REPEAT PHQ 07/03/2024 06/02/2024, 06/02/2024 INFLUENZA VACCINE (#1) 2024 COVID-19 VACCINE (3 - 2024- season) 2025 03/27/2021, 02/27/2021 DEPRESSION SCREENING 06/02/2025 06/02/2024, 06/02/19 25 PAP SMEAR 07/17/2026 07/17/2021, 11/09/2013 MAMMOGRAM 10/03/2026 10/03/2024, 04/2 08/2022, 08/27/2018, Additional history exists LIPID PANEL 06/10/2029 06/10/2024, 12/0 11/2021, 05/03/2020, Additional history exists COLONOSCOPY 01/28/2034 01/29/2024, 02/0 09/2018, 08/10/2006 COLORECTAL CANCER SCREENING 01/28/2034 HEPATITIS C SCREENING Completed 05/03/2020, 020 SMOKING STATUS SCREENING (Once After 26 Yrs) Completed 10/07/2024 OSTEOPOROSIS SCREENING INITIAL (ONE-TIME) Completed 01/20/2025, 08/27/2018 HEPATITIS A VACCINES Aged Out No long er eligible based on patient's age to complete this topic HIB VACCINES Aged Out No longer eligi ble based on patient's age to complete this topic MENINGOCOCCAL VACCINES (ACWY) Aged Out No longer eligible based on patient's age to complete this topic MENINGOCOCCAL VACCINES (B) Aged Out N o longer eligible based on patient's age to complete this topic Medical Devices Implanted Type Area Husker Operator Device Identifier Shelf Expiration Date Model / Serial / Lot Prosthetic Joint Prosthetic Joint Right: Hip Marker Ultraclip 17ga 10cm Tissue Dual Trigger Breast Ti [place] Shape Bx/5ea - [id number] Implanted:Qty : 1 on 09/25/2022 by Dae Julien MD at [facility] Right: Breast [employer] [id number] / / [place] 8fr Infusion Mid Size Pre-Attached Open Suture Hole - [id number] Implanted:Qty : 1 on 11/03/2022 by Makenzie Mcghee MD at [facility] Left: Neck MEDCOMP 11/28/2026 [id number] / / [id number] Procedures Procedure Name Priority Date/Time Associated Diagnosis Comments MRI LUMBAR SPINE (NEURO) WITHOUT CONTRAST Routine 02/11/2025 11:00 AM EDT Spinal stenosis, lumbar region without neurogenic claudication Other intervertebral disc degeneration, lumbar region without mention of lumbar back pain or lower extremity pain BD DXA AXIAL (SPINE) WITH HIP Routine 01/20/2025 10:04 AM EDT Osteopenia of multiple sites Osteopenia of lumbar spine HDL Routine 06/10/2024 11:33 AM EST Lipid screening ENDOSCOPY, COLON 01/29/2024 11:55 AM EDT BI MAMMOGRAM DIAGNOSTIC WITH TOMOSYNTHESIS WITH CAD (BILATERAL) Urgent/patient waiting 09/22/2022 2:08 PM EDT Subareolar mass of right breast HM PAP SMEAR FOR RESULT ENTRY ONLY Routine 07/17/2021 HEPATITIS C ANTIBODY, QUALITATIVE Routine 05/03/2020 10:46 AM EST Encounter for hepatitis C screening test for low risk patient from Last 3 Months or Most Recently Relevant to Health Maintenance Results * MRI LUMBAR SPINE (NEURO) WITHOUT [...] stenosis or significant foraminal stenosis. Procedure Note Elton, Cameronmarie, MD - 02/13/2025 MRI LUMBAR SPINE (NEURO) WITHOUT CONTRAST Referring clinician's provided indication for this examination in [facility]:Outside Radiology Order; spinal stenosis TECHNIQUE: MRI LUMBAR [...] findings, as above. Juan Diego Wynn MD IMG MR [id number] Final Result * BD DXA AXIAL (SPINE) WITH HIP (01/20/2025 10:04 AM EDT) Anatomical Region Laterality Modality Bone Density Bone Density 01/20/2025 10:0 4 AM EDT Impressions 01/23/2025 10:52 AM EDT Interpretation: Osteoporosis. Narrative 01/23/2025 10:52 AM EDT Referred By: PRACHI MORRIS Indications: Osteopenia Scanner: [employer] A with serial# of [id number] located at [facility] Bone Density Scan (DXA) 01/20/25 Details of prior DXA scans are available by clicking View Full Report BMD T- Z- Skeletal Site gm/cm2 score score BMD Change Since Prior Scan ------ ----- ----- PA Spine (L1-L4) 0.836 -1.90 0.40 -0.066 (-7.3%)* since 08/27/2018 Total Hip (Left) 0.612 -2.70 -1.00 -0.113 (-15.6%)* since 08/27/2018 Femoral Neck (Left) 0.536 -2.80 -0.80 -0.019 (stable) since 08/27/2018 ------ ----- ----- * Denotes significant change when >= 0.022 g/cm2 for the spine, 0.027 g/cm2 for the total hip, 0.029 g/cm2 for the femoral neck. Interpretation: Osteoporosis. Technical Quality: Imaging of all sites was of adequate quality. FRAX: A FRAX(r) score is not provided because the patient has osteoporosis, which is generally an indication for treatment. Reviewed By: Ahmet Mari MD on 01/23/2025 10:52:36 Additional Information: -World Health Organization criteria classify adults based on lowest T-score at PA spine, hip or forearm: Normal (T-score >= -1.0), Osteopenia (T-score between -1 and -2.5), or Osteoporosis (T-score <= -2.5). At [facility], T-scores are compared to peak bone density of a young white gender matched reference population. - For premenopausal women and men under the age of 50, Z-scores (comparison to age, gender, and ethnicity matched reference population) are used: Above expected range for age (Z-score >= 2.0), Within expected range of age (Z-score 1.9 to -1.9), or Below expected range for age (Z-score <= -2.0). - The Bone Health and Osteoporosis Foundation recommends that treatment be considered in men aged more than 50 years and in postmenopausal women with ANY of the following: Prior hip or vertebral fractures; T-score of <= -2.5 at the PA spine or hip; or 10 year fracture probability by FRAX of >= 3% for the hip or >= 20% for major osteoporotic fracture. - The FRAX algorithm (https://www.zulma.ac.uk/FRAX/tool.aspx) is designed to predict 10-year fracture risk in treatment-naive adults between the ages of 40 and 90. It is not intended to be used in those receiving pharmacologic osteoporosis treatment. - The TBS is derived from the texture of the DXA spine image and has been shown to be related to bone microarchitecture and fracture risk. This data provides information independent of BMD value. It adds to fracture risk assessment with a FRAX adjusted for TBS score. If your patient had a TBS and qualified for a FRAX score, the reported FRAX score has been adjusted for TBS. TBS Score Interpretation 1.350 and greater Normal bone microarchitecture 1.200 to 1.350 Partially degraded bone microarchitecture 1.200 and less Degraded bone microarchitecture - Including race/ethnicity in the generation of T- or Z-scores or in the FRAX calculation is complicated, and currently undergoing active review to ensure that we can give patients the best information on their risk of fracture. - Some prior studies may not be compatible with our comparison software. - Click on View Full Report to see subsequent pages with images and prior bone density results. Procedure Note Ahmet Mari MD - 01/23/2025 Referred By: PRACHI MORRIS Indications: Osteopenia Scanner: [employer] with serial# of [id number] located at [facility] Bone Density Scan (DXA) 01/20/25 Details of prior DXA scans are available by clicking View Full Report BMD T- Z- Skeletal Site gm/cm2 score score BMD Change Since Prior Scan ------ ----- PA Spine (L1-L4) 0.836 -1.90 0.40 -0.066 (-7.3%)* since08/27/2018 Total Hip (Left) 0.612 -2.70 -1.00 -0.113 (-15.6%)* since08/27/2018 Femoral Neck (Left) 0.536 -2.80 -0.80 -0.019 (stable) since08/27/2018 ------ ----- * Denotes significant change when >= 0.022 g/cm2 for the spine, 0.027g/cm2 for the total hip, 0.029 g/cm2 for the femoral neck. Interpretation: Osteoporosis. Technical Quality: Imaging of all sites was of adequate quality. FRAX: A FRAX(r) score is not provided because the patient hasosteoporosis, which is generally an indication for treatment. Reviewed By: Ahmet Mari MD on 01/23/2025 10:52:36 Additional Information: -World Health Organization criteria classify adults based on lowestT-score at PA spine, hip or forearm: Normal (T-score >= -1.0), Osteopenia (T-score between -1 and -2.5), or Osteoporosis (T-score <= -2.5). At [facility], T-scores are compared to peak bone density of a young white gender matched reference population. - For premenopausal women and men under the age of 50, Z-scores(comparison to age, gender, and ethnicity matched reference population) are used:Above expected range for age (Z-score >= 2.0), Within expected range of age (Z-score 1.9 to -1.9), or Below expected range for age (Z-score <= -2.0). - The Bone Health and Osteoporosis Foundation recommends that treatment be considered in men aged more than 50 years and in postmenopausal women with ANY of the following: Prior hip or vertebral fractures; T-score of <= -2.5 at the PA spine or hip; or 10 year fracture probability by FRAX of >= 3%for the hip or >= 20% for major osteoporotic fracture. - The FRAX algorithm (https://www.zulma.ac.uk/FRAX/tool.aspx) is designed to predict 10-year fracture risk in treatment-naive adultsbetween the ages of 40 and 90. It is not intended to be used in those receiving pharmacologic osteoporosis treatment. - The TBS is derived from the texture of the DXA spine image and has been shown to be related to bone microarchitecture and fracture risk. This data provides information independent of BMD value. It adds to fracture risk assessment with a FRAX adjusted for TBS score. If your patient had a TBSand qualified for a FRAX score, the reported FRAX score has been adjusted for TBS. TBS Score Interpretation 1.350 and greater Normal bone microarchitecture 1.200 to 1.350 Partially degraded bone microarchitecture 1.200 and less Degraded bone microarchitecture - Including race/ethnicity in the generation of T- or Z-scores or in the FRAX calculation is complicated, and currently undergoing active review to ensure that we can give patients the best information on their risk of fracture. - Some prior studies may not be compatible with our comparison software. - Click on View Full Report to see subsequent pages with images andprior bone density results. IMPRESSION: Interpretation: Osteoporosis. us Prachi Morris RIB CLOTH KNITTER IM BD BONE DENSITY D EXA Final Result * HDL (06/10/2024 11:33 AM EST) HDL 97 mg/dL [facility] Comment: Interpretation <40 mg/dL: Low HDL cholesterol (major risk factor for CHD) Greater than or equal to 60 mg/dL: High HDL cholesterol ( negative risk factor for CHD) HDL - cholesterol is affected by a number of factors, e.g. smoking, excerise, hormones, sex and age. Blood 06/10/2024 11:3 3 AM EST 06/10/2024 11:36 AM EST us Prachi Morris [facility] BLOOD ORDERABLES Final Result [facility] [address] [place] [address] * ENDOSCOPY, COLON (01/29/2024 11:55 AM EDT) Narrative Transcriptions Joshua Call MD - 01/29/2024 11:55 AM EDT [facility] Patient Name: Jenny Vuong Attending MD:: JOSHUA CALL MD, Procedure Date: 01/29/2024 11:55 AM Date of : 1950 Age: 73 Admit Type: Outpatient Gender: Female Room: [place] [address] Referring MD: PRACHI MORRIS Exam Type: Colonoscopy Indications: High risk colon cancer surveillance: Personalhistory of colonic polyps, Last colonoscopy: July2018 Medications: Propofol per Anesthesia Procedure: Informed consent was obtained from the patientafter discussion of the indications, limitations, alternatives, benefits, and risks of the procedure. Risks specifically discussed include but are not limited to medication reactions, missed lesions, bleeding, perforation, or the need for emergent surgery. Throughout the procedure, the patient's blood pressure, pulse, end-tidal CO2, and oxygensaturations were monitored continuously. The Olympus adult variable colonoscope CF-MM045R #4 was introduced through the anus and advanced to the terminal ileum, with identification of theappendiceal orifice and IC valve. The terminal ileum, the appendiceal orifice and the rectum werephotographed. The colonoscopy was performed without difficulty.The patient tolerated the procedure well. The qualityof the bowel preparation was excellent. The bowel preparation used was Plenvu via split doseinstruction. Complications: No immediate complications. Estimated blood loss:None. Findings: The digital rectal exam was normal. Pertinent negatives include no palpable rectal lesions. Hemorrhoids were found on perianal exam. The entire examined colon appeared normal on direct and retroflexion views. The terminal ileum appeared normal. Retroflexion in the right colon was performed. Impression: - Hemorrhoids found on perianal exam. - The entire examined colon is normal on direct and retroflexion views. - The examined portion of the ileum was normal. - No specimens collected. Recommendation: - Repeat colonoscopy 7-8 years for surveillance. JOSHUA CALL MD 01/29/2024 12:21:58 PM This report has been signed electronically. Number of Addenda: 0 Note Initiated On: 01/29/2024 11:55 AM Procedure Code(s): --- Professional --- 38947, Colonoscopy, flexible; diagnostic, including collection of specimen(s) by brushing or washing, when performed (separateprocedure) --- Technical --- 03380, Colonoscopy, flexible; diagnostic, including collection of specimen(s) by brushing or washing, when performed (separateprocedure) Diagnosis Code(s): --- Professional --- Z86.010, Personal history of colonic polyps K64.9, Unspecified hemorrhoids --- Technical --- Z86.010, Personal history of colonic polyps K64.9, Unspecified hemorrhoids CPT copyright 2021 [employer]. All rights reserved. The codes documented in this report are preliminary and upon dry primer powder blender reviewmay be revised to meet current compliance requirements. Procedure Date: 01/29/2024 11:55:[address] [place] [address] Prachi Morris RIB CLOTH KNITTER GI PROCEDURE ORDERABL ES Final Result * (ABNORMAL) BI MAMMOGRAM DIAGNOSTIC WITH TOMOSYNTHESIS WITH CAD (BILATERAL) (09/22/2022 2:08 PM EDT) Anatomical Region Laterality Modality Breast Left, Breast Right, Breast Bilateral Bila teral Mammography 09/22/2022 2:13 PM EDT Impressions 09/22/2022 3:03 PM EDT RIGHT BREAST: 2 cm slightly irregular solid mass with microcalcifications, corresponding to the palpable area, for which ultrasound-guided core biopsy is recommended. LEFT BREAST: Negative, no evidence of malignancy. Annual screening mammography is recommended in 12 months. Findings and recommendations were discussed with the patient and all questions were answered in full. Bi-RADS: BI-RADS CATEGORY: 4C - High suspicion of malignancy. DENSITY: There are scattered fibroglandular densities. RIGHT RECOMMENDATION DUE DATE: At This Time Recommendation: Right Ultrasound Biopsy LEFT RECOMMENDATION DUE DATE: 12 Months Recommendation: Left Mammography Screening Narrative 09/22/2022 3:03 PM EDT STUDY: Bilateral diagnostic mammography with tomosynthesis and CAD HISTORY: 71-year-old female presents for evaluation of right breast palpable abnormality for 3 weeks. TECHNIQUE: Bilateral full-field digital diagnostic mammography is obtained and read in conjunction with computer-aided detection. Tomosynthesis as well as 2-D C view imaging were obtained. COMPARISON: Comparison made to multiple prior studies dating back to August 2010, the most recent dated July 2018. BREAST COMPOSITION: There are scattered areas of fibroglandular density BILATERAL BREASTS: RIGHT BREAST: Mammography: There is a mass in the upper breast at middle depth, with associated loosely grouped punctate and linear microcalcifications. Ultrasound: Targeted ultrasound examination of the palpable area indicated by the patient demonstrates an oval lobulated slightly irregular solid hypoechoic mass at 12:00, 2 cm from the-nipple with internal calcifications. No significant internal vascularity. This measures 2 x 2 x 1.3 cm, wider than tall. This corresponds to the mammographic mass. LEFT BREAST: Mammography: No new masses, suspicious calcifications or other abnormalities are seen. No significant interval change. Procedure Note Flaca Cage MD - 09/22/2022 STUDY: Bilateral diagnostic mammography with tomosynthesis and CAD HISTORY: 71-year-old female presents for evaluation of right breastpalpable abnormality for 3 weeks. TECHNIQUE: Bilateral full-field digital diagnostic mammography is obtainedand read in conjunction with computer-aided detection. Tomosynthesis aswell as 2-D C view imaging were obtained. COMPARISON: Comparison made to multiple prior studies dating back to August2010, the most recent dated July 2018. BREAST COMPOSITION: There are scattered areas of fibroglandulardensity BILATERAL BREASTS: RIGHT BREAST: Mammography: There is a mass in the upper breast at middle depth, with associatedloosely grouped punctate and linear microcalcifications. Ultrasound: Targeted ultrasound examination of the palpable area indicated by thepatient demonstrates an oval lobulated slightly irregular solid hypoechoicmass at 12:00, 2 cm from the-nipple with internal calcifications. Nosignificant internal vascularity. This measures 2 x 2 x 1.3 cm, wider thantall. This corresponds to the mammographic mass. LEFT BREAST: Mammography: No new masses, suspicious calcifications or other abnormalities are seen.No significant interval change. IMPRESSION: RIGHT BREAST: 2 cm slightly irregular solid mass with microcalcifications,corresponding to the palpable area, for which ultrasound- guided corebiopsy is recommended. LEFT BREAST: Negative, no evidence of malignancy. Annual screeningmammography is recommended in 12 months. Findings and recommendations were discussed with the patient and allquestions were answered in full. Bi-RADS: BI-RADS CATEGORY: 4C - High suspicion of malignancy. DENSITY: There are scattered fibroglandular densities. RIGHT RECOMMENDATION DUE DATE: At This Time Recommendation: Right Ultrasound Biopsy LEFT RECOMMENDATION DUE DATE: 12 Months Recommendation: Left Mammography Screening us Prachi Morris RIB CLOTH KNITTER IMG MG EXAMS Final Result * PAP SMEAR FOR RESULT ENTRY ONLY (07/17/2021) Pap smear NILM HPV neg Historical Provider MD HEALTH MAINTENANCE Final Result * Hepatitis C antibody, qualitative (05/03/2020 10:46 AM EST) HCV NON-REACTIV E NON-REACTI VE [facility] Blood 05/03/2020 10:4 6 AM EST 05/03/2020 10:48 AM EST us Prachi Morris CNP LAB BLOOD ORDERABLES Final Result Performing Organization Address City/State/[facility] Co de Phone Number [address] [address] from Last 3 Months or Most Recently Relevant to Health Maintenance Insurance [facility] MEDEX SUPPLEMENT MEDICARE PART A & B [facility] MEDEX SUPPLEMENT MEDICARE PART A & B [facility] MEDEX SUPPLEMENT MEDICARE PART A & B [facility] MEDEX SUPPLEMENT MEDICARE PART A & B [facility] MEDEX SUPPLEMENT MEDICARE PART A & B [facility] MEDEX SUPPLEMENT MEDICARE PART A & B [facility] MEDEX SUPPLEMENT MEDICARE PART A & B MEDICARE PART A & B [employer] MEDEX SUPPLEMENT MEDICARE PART A & B [employer] MEDEX SUPPLEMENT MEDICARE PART A & B Advance Directives For more information, please contact: [phone] (9AM - 5PM [facility], Thursday-Thursday) Documents on File Type Date Recorded Patient Signs And Displays Sales Representative Kirk BAI 06/16/2017 11:31 AM Healthcare Proxy 2022 11/06/22 [facility]TH[facility] PROXY * Full Code (Latest Code Status on File) Date Activated Date Inactivated Comments 04/14/2023 2:44 PM Question Answer Comments Code Status Confirmed With: Patient * Full Code Date Activated Date Inactivated Comments 04/14/2023 7:14 AM 04/14/2023 2:44 PM Question Answer Comments Code Status Confirmed With: Patient Care Teams Window Dresser Relationship Specialty Start Date End Date Prachi Morris CNP [address] [place] [phone] PCP - General Family Medicine 07/05/18 Lizzy Huber MD [address] [place] [address] Primary Oncologist Medical Oncology 10/20/22 Makenzie Mcghee MD [address] [place] [address] General Surgery 10/25/22 Sadie Marina PA-C [address] [place] [address] Physician Pump House Engineer Medical Oncology 11/12/22 Mary Coates FNP [address] [place] [address] Nurse Practitioner Medical Oncology 11/17/22spring, Tali Jimenez MD [address] [place] [phone] [email or web address] Primary Oncologist Medical Oncology 12/31/22 Prachi Morris CNP [address] [place] [address] [email or web address] Insurance Assigned Provider 09/04/24 Additional Source Comments The information contained in this document represents components of the legal health record. It is not the complete legal health record.[facility]
--- OUTSIDE RECORDS SUMMARY | 2025-02-27 12:21 | XMS_ITS | Encounter Summary ---
Author Organization [facility] Address [address] [place] [address] Phone Care Team Providers Care Lens Grinder Rough Name Role Phone Dioni Webb DO Primary Care Provider Blanche Morris CNP Primary Care Provide r Dioin Webb DO Unavailable Dioni Webb DO Unavailable Lizzy Huber MD Unavailable Unavailable Lizzy Huber MD Unavailable Makenzie Mcghee MD Unavailable Sadie Marina PA-C Unavailable tom Mary Coates SCRAP METAL PROCESSING WORKER Unavailable [phone] Tali Guerrero MD Unavailable [phone] Alejandro Tirado MD Unavailable Blanche Morris CNP Unavailable Encounter Details Date Type Department Care Team (Late st Contact Info) Description 06/07/2018 Ancillary Orders [address] [address] Blanche Morris CNP [address] [place] [address] Social History Tobacco Use Types Packs/Day Years [...] st Contact Info) Description 11/23/2024 Procedure Pass [address] [address] 10/06/2025 11:00 AM EDT Appointment [address] [address] Lizzy Huber MD [address] [place] [address] documented as of this encounter Visit Diagnoses Not on filedocumented in this encounter Additional Health Concerns Assessment Noted Time PHQ-2 Depression Total Score: 3 05/14/20 18 11:14 AM EST documented as of this encounter Care Teams Lens Grinder Rough Relationship Specialty Start Date End Date Dioni Webb DO [address] [place] [address] PCP - General 03/19/17 07/04/18 Blanche Morris, MARINA [address] [place] [address] PCP - General Family Medicine 07/05/18 Dioni Webb DO [address] [place] [address] [email or web address] Insurance Assigned Provider 10/02/18 12/11/18 Dioni Webb DO [address] [place] [address] Insurance Assigned Provider 09/07/19 06/09/20 Lizzy Huber MD Primary Oncologist Medical Oncology 10/10/22 10/19/22 Lizzy Huber MD [address] [place] [address] [email or web address] Primary Oncologist Medical Oncology 10/20/22 Makenzie Mcghee MD [address] [address] General Surgery 10/25/22 Sadie Marina PA-C [address] [place] [address] [email or web address] Physician Asset Administrator Medical Oncology 11/12/22 Mary Coates FNP [address] [place] [address] [email or web address] Nurse Practitioner Medical Oncology 11/17/22 Tali Guerrero MD [address] [place] [phone] [email or web address] Primary Oncologist Medical Oncology 12/31/22 Alejandro Tirado MD [address] [address] Primary Oncologist Hematology and Oncology 02/06/23 08/13/23 Blanche Morris, MARINA [address] [place] [address] [email or web address] Insurance Assigned Provider 09/04/24 documented as of this encounter Additional Source Comments The information contained in this document represents components of the legal health record. It is not the complete legal health record.[facility]
--- OUTSIDE RECORDS SUMMARY | 2025-02-27 12:21 | XMS_ITS | Encounter Summary ---
Author Organization [facility] Address [address] [place] [address] Phone Care Team Providers Care Life Tester [employer] Name Role Phone Blanche Morris CNP Primary Care Provide r Lizzy Huber MD Unavailable Unavailable Lizzy Huber MD Unavailable [phone] Makenzie Mcghee MD Unavailable [phone] Sadie Marina PA-C Unavailable [email or web address] Mary Coates NUTRITIONAL CHEMIST Unavailable [phone] SpringTali MD Unavailable [phone] Alejandro Tirado MD Unavailable [phone] Blanche Morris CNP Unavailable Reason for Referral * MRI/CAT Scan - Closed Specialty Diagnoses / Procedures Referred By Zana renteria Referred To Contact Radiology Diagnoses Bloating Change in bowel habits Procedures CT Abdomen/Pelvis Ericka Rizo CNP Phone: tel: fax: [email or web address] Referral ID Status Reason Start Date Expiration Date Visits Re quested Visits Authorized [id number] Closed 07/11/2022 07/11/2023 1 1 Encounter Details Date Type Department Care Team (Latest Contact Info) Description 07/11/2022 Transcribe Orders Virtual Department [address] [place] [phone] Ericka Rizo CNP [address] [place] [address] [email or web address] Bloating (Primary Dx); Change in bowel habits Social History Tobacco Use Types Packs/Day Years [...] st Contact Info) Description 11/23/2024 Procedure Pass [address] [address] 10/06/2025 11:00 AM EDT Appointment [address] [address] Lizzy Huber MD [address] [place] [address] [email or web address] documented as of this encounter Results * CT ABDOMEN/PELVIS WITH CONTRAST (07/30/2022 11:58 AM EST) Anatomical Region Laterality Modality Abdomen, Pelvis Computed Tomogra phy 07/31/2022 10:4 4 AM EST Impressions 07/31/2022 11:01 AM EST 1. No acute abnormality in the abdomen or pelvis to explain etiology of patient's symptoms. 2. Similar 2.7 cm left adrenal lesion previously characterized on prior MRI. Narrative 07/31/2022 11:[address] ABDOMEN/PELVIS WITH CONTRAST History: Bloating, change in bowel habits TECHNIQUE: Multidetector-row CT of the abdomen and pelvis was performed after administration of intravenous contrast using tailored dose modulation techniques. Images were reconstructed in the axial, coronal, and sagittal planes. COMPARISON: CT abdomen pelvis 06/14/2018 and MRI abdomen 06/28/2018 FINDINGS: Lower Chest: Evaluation limited by respiratory motion. No consolidation or pleural effusions. Liver: Normal attenuation. Similar 0.9 cm low-density lesion at the periphery of the right hepatic lobe Biliary: No biliary ductal dilatation. Spleen: No splenomegaly or focal lesions. Pancreas: No masses or ductal dilatation. Adrenal Glands: Redemonstration of 2.7 cm left adrenal lesion previously characterized on prior MRI. Normal CT appearance of the right adrenal gland. Six Kidneys/Ureters: No solid masses, stones, or hydronephrosis. Bowel: Administered enteric contrast opacifies nonobstructed loops of small bowel. The sigmoid colon is decompressed and unopacified, limiting evaluation. Mild volume of stool present at the proximal colon. Normal appendix. No distention or wall thickening. Peritoneum/Retroperitoneum: No masses, pneumoperitoneum, or fluid. Lymph Nodes: No lymphadenopathy. 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 Urinary bladder is decompressed. No definite mural thickening. Fibroid uterus. Vessels: (CT abdomen No abdominal aortic aneurysm. Bones/Soft Tissues: Postsurgical changes status post right hip arthroplasty. Redemonstration of retrolisthesis of T11 over T12 and T12 over L1, similar. Similar minimal grade 1 anterolisthesis of L4 over L5. No destructive osseous lesions. Procedure Note Heydi Bellamy MD - 07/31/2022 CT ABDOMEN/PELVIS WITH CONTRAST History: Bloating, change in bowel habits TECHNIQUE: Multidetector-row CT of the abdomen and pelvis was performedafter administration of intravenous contrast using tailored dosemodulation techniques. Images were reconstructed in the axial, coronal,and sagittal planes. COMPARISON: CT abdomen pelvis 06/14/2018 and MRI abdomen 06/28/2018 FINDINGS: Lower Chest: Evaluation limited by respiratory motion. No consolidation orpleural effusions. Liver: Normal attenuation. Similar 0.9 cm low-density lesion at theperiphery of the right hepatic lobe Biliary: No biliary ductal dilatation. Spleen: No splenomegaly or focal lesions. Pancreas: No masses or ductal dilatation. Adrenal Glands: Redemonstration of 2.7 cm left adrenal lesion previouslycharacterized on prior MRI. Normal CT appearance of the right adrenalgland. Six Kidneys/Ureters: No solid masses, stones, or hydronephrosis. Bowel: Administered enteric contrast opacifies nonobstructed loops ofsmall bowel. The sigmoid colon is decompressed and unopacified, limitingevaluation. Mild volume of stool present at the proximal colon. Normalappendix. No distention or wall thickening. Peritoneum/Retroperitoneum: No masses, pneumoperitoneum, or fluid. Lymph Nodes: No lymphadenopathy. Pelvic Organs/Bladder: History artifact from right total hip arthroplastyobscures evaluation. Urinary bladder is decompressed. No definite muralthickening. Fibroid uterus. Vessels: (CT abdomen No abdominal aortic aneurysm. Bones/Soft Tissues: Postsurgical changes status post right hiparthroplasty. Redemonstration of retrolisthesis of T11 over T12 and P72ocxx L1, similar. Similar minimal grade 1 anterolisthesis of L4 over L5.No destructive osseous lesions. IMPRESSION: 1. No acute abnormality in the abdomen or pelvis to explain etiology ofpatient's symptoms. 2. Similar 2.7 cm left adrenal lesion previously characterized on priorMRI. Ericka Rizo CNP IMG CT ABD/PELVIS Final Re sult documented in this encounter Visit Diagnoses Diagnosis Bloating- Primary Flatulence, eructation, and gas pain Change in bowel habits Other symptoms involving digestive system Bloating Flatulence, eructation, and gas pain Change in bowel habits Other symptoms involving digestive system documented in this encounter Additional Health Concerns Assessment Noted Time PHQ-9 Depression Total Score: 18 022 10:26 AM EST PHQ-2 Depression Total Score: 4 05/07/20 22 10:27 AM EST documented as of this encounter Care Teams Life Tester [employer] Relationship Specialty Start Date End Date Blanche Morris CNP [address] [place] [phone] [email or web address] PCP - General Family Medicine 07/05/18 Lizzy Huber MD Primary Oncologist Medical Oncology 10/10/22 10/19/22 Lizzy Huber MD [address] [place] [address] [email or web address] Primary Oncologist Medical Oncology 10/20/22 Makenzie Mcghee MD [address] [place] [address] [email or web address] General Surgery 10/25/22 Sadie Marina PA-C [address] [place] [address] [email or web address] Physician Barley Steeper Medical Oncology 11/12/22 Mary Coates FNP [address] [place] [address] [email or web address] Nurse Practitioner Medical Oncology 11/17/22 Patterson, Tali Jimenez MD [address] [place] [phone] [email or web address] Primary Oncologist Medical Oncology 12/31/22 Alejandro Tirado MD [address] [place] [address] [email or web address] Primary Oncologist Hematology and Oncology 02/06/23 08/13/23 Blanche Morris, MARINA [address] [place] [address] [email or web address] Insurance Assigned Provider 09/04/24 documented as of this encounter Additional Source Comments The information contained in this document represents components of the legal health record. It is not the complete legal health record.[facility]
--- OUTSIDE RECORDS SUMMARY | 2025-02-27 12:21 | XMS_ITS | Encounter Summary ---
Author Organization [facility] Address [address] [place] [address] Phone Care Team Providers Care Inserter Promotional Item Name Role Phone Blanche Morris CNP Primary Care Provide r Lizzy Huber MD Unavailable Unavailable Lizzy Huber MD Unavailable Makenzie Mcghee MD Unavailable [phone] Sadie Marina PA-C Unavailable pnugen Mary Coates EMERGENCY CREW SUPERVISOR Unavailable SpringTali MD Unavailable [phone] Alejandro Tirado MD Unavailable Blanche Morris CNP Unavailable Encounter Details Date Type Department Care Team (Late st Contact Info) Description 07/11/2022 Procedure Pass [facility], Ct Scan - [address] [address] Social History Tobacco Use Types Packs/Day Years [...] Contact Info) Description 11/23/2024 Procedure Pass [address] [address] 10/06/2025 11:00 AM EDT Appointment [address] [address] Lizzy Huber MD [address] [place] [address] [email or web address] documented as of this encounter Visit Diagnoses Not on filedocumented in this encounter Additional Health Concerns Assessment Noted Time PHQ-9 Depression Total Score: 18 022 10:26 AM EST PHQ-2 Depression Total Score: 4 05/07/20 22 10:27 AM EST documented as of this encounter Care Teams Inserter Promotional Item Relationship Specialty Start Date End Date Blanche Morris CNP [address] [place] [address] [email or web address] PCP - General Family Medicine 07/05/18 Lizzy Huber MD Primary Oncologist Medical Oncology 10/10/22 10/19/22 Lizzy Huber MD [address] [place] [address] Primary Oncologist Medical Oncology 10/20/22 Makenzie Mcghee MD [address] [place] [address], [address] [place] [address] General Surgery 10/25/22 Sadie Marina PA-C 15 [facility], 2nd [place] [address] Physician Cafeteria Director Medical Oncology 11/12/22 Mary Coates FNP 30 [place] [address] Nurse Practitioner Medical Oncology 11/17/22 Tali Guerrero MD [address] [place] [phone] Primary Oncologist Medical Oncology 12/31/22 Alejandro Tirado MD [address] [address] Primary Oncologist Hematology and Oncology 02/06/23 08/13/23 Blanche Morris CNP 29 [place] [address] Insurance Assigned Provider 09/04/24 documented as of this encounter Additional Source Comments The information contained in this document represents components of the legal health record. It is not the complete legal health record.[facility]
--- OUTSIDE RECORDS SUMMARY | 2025-02-27 12:21 | XMS_ITS | Encounter Summary ---
Author Organization [facility] Address [address] [place] [address] Phone Care Team Providers Care Literary Agent Name Role Phone Blanche Morris CNP Primary Care Provide r Lizzy Huber MD Unavailable Unavailable Lizzy Huber MD Unavailable [phone] Makenzie Mcghee MD Unavailable Sadie Marina PA-C Unavailable pnugen Mary Coates ADMINISTRATIVE ASSISTANT COORDINATOR Unavailable SpringTali MD Unavailable [phone] Alejandro Tirado MD Unavailable Blanche Morris CNP Unavailable Encounter Details Date Type Department Care Team (Late st Contact Info) Description 09/18/2022 Procedure Pass [facility] 30 [place] [address] Social History Tobacco Use Types Packs/Day Years [...] st Contact Info) Description 11/23/2024 Procedure Pass [address] [address] 10/06/2025 11:00 AM EDT Appointment [address] [address] Lizzy Huber MD [address] [place] [address] [email or web address] documented as of this encounter Visit Diagnoses Not on filedocumented in this encounter Additional Health Concerns Assessment Noted Time PHQ-9 Depression Total Score: 18 022 10:26 AM EST PHQ-2 Depression Total Score: 4 05/07/20 22 10:27 AM EST documented as of this encounter Care Teams Literary Agent Relationship Specialty Start Date End Date Blanche Morris CNP 29 [place] [address] [email or web address] PCP - General Family Medicine 07/05/18 Lizzy Huber MD Primary Oncologist Medical Oncology 10/10/22 10/19/22 Lizzy Huber MD [address] [place] [address] Primary Oncologist Medical Oncology 10/20/22 Makenzie Mcghee MD [address] [place] [address], [address] [place] [address] General Surgery 10/25/22 Sadie Marina PA-C 15 [facility], 2nd [place] [address] Physician Roofing Machine Tender Medical Oncology 11/12/22 Mary Coates FNP 30 [place] [address] Nurse Practitioner Medical Oncology 11/17/22 Tali Guerrero MD [address] [place] [address] [phone] Primary Oncologist Medical Oncology 12/31/22 Alejandro Tirado MD 4950 [facility] 30 [place] [address] Primary Oncologist Hematology and Oncology 02/06/23 08/13/23 Blanche Morris CNP 29 [place] [address] Insurance Assigned Provider 09/04/24 documented as of this encounter Additional Source Comments The information contained in this document represents components of the legal health record. It is not the complete legal health record.[facility]
--- OUTSIDE RECORDS SUMMARY | 2025-02-27 12:21 | XMS_ITS | Encounter Summary ---
Author Organization [facility] Address [address] [place] [address] Phone Care Team Providers Care Director Surgical Name Role Phone Blanche Morris CNP Primary Care Provide r Lizzy Huber MD Unavailable Unavailable Lizzy Huber MD Unavailable Makenzie Mcghee MD Unavailable [phone] Sadie Marina PA-C Unavailable pnugen Mary Coates MANAGER FLOAT Unavailable SpringTali MD Unavailable [phone] Alejandro Tirado MD Unavailable Blanche Morris CNP Unavailable Encounter Details Date Type Department Care Team (Late st Contact Info) Description 09/18/2022 Procedure Pass [address] [address] Social History Tobacco Use Types Packs/Day Years [...] st Contact Info) Description 11/23/2024 Procedure Pass [address] [address] 10/06/2025 11:00 AM EDT Appointment [address] [address] Lizzy Huber MD [address] [place] [address] [email or web address] documented as of this encounter Visit Diagnoses Not on filedocumented in this encounter Additional Health Concerns Assessment Noted Time PHQ-9 Depression Total Score: 18 022 10:26 AM EST PHQ-2 Depression Total Score: 4 05/07/20 22 10:27 AM EST documented as of this encounter Care Teams Director Surgical Relationship Specialty Start Date End Date Blanche Morris CNP 29 [place] [address] [email or web address] PCP - General Family Medicine 07/05/18 Lizzy Huber MD Primary Oncologist Medical Oncology 10/10/22 10/19/22 Lizzy Huber MD [address] [place] [address] Primary Oncologist Medical Oncology 10/20/22 Makenzie Mcghee MD [address] [place] [address], [address] [place] [address] General Surgery 10/25/22 Sadie Marina PA-C 15 [facility], 2nd [place] [address] Physician Silk Top Hat Body Maker Medical Oncology 11/12/22 Mary Coates FNP 30 [place] [address] Nurse Practitioner Medical Oncology 11/17/22 Tali Guerrero MD [address] [place] [address] [phone] Primary Oncologist Medical Oncology 12/31/22 Alejandro Tirado MD 4950 [facility] 30 [place] [address] Primary Oncologist Hematology and Oncology 02/06/23 08/13/23 Blanche Morris CNP 29 [place] [address] Insurance Assigned Provider 09/04/24 documented as of this encounter Additional Source Comments The information contained in this document represents components of the legal health record. It is not the complete legal health record.[facility]
--- OUTSIDE RECORDS SUMMARY | 2025-02-27 12:21 | XMS_ITS | Encounter Summary ---
Author Organization [facility] Address [address] [place] [address] Phone Care Team Providers Care Preschool Assistant Teacher Name Role Phone Blanche Morris CNP Primary Care Provide r Lizzy Huber MD Unavailable Unavailable Lizzy Huber MD Unavailable Makenzie Mcghee MD Unavailable Sadie Marina PA-C Unavailable pnugen Mary Coates GRADUATE STUDIES DEAN Unavailable SpringTali MD Unavailable [phone] Alejandro Tirado MD Unavailable [phone] Blanche Morris CNP Unavailable Encounter Details Date Type Department Care Team (Late st Contact Info) Description 04/05/2021 Procedure Pass [facility], [address] [address] Social History Tobacco Use Types Packs/Day Years [...] st Contact Info) Description 11/23/2024 Procedure Pass [address] [address] 10/06/2025 11:00 AM EDT Appointment [address] [address] Lizzy Huber MD [address] [place] [address] [email or web address] documented as of this encounter Visit Diagnoses Not on filedocumented in this encounter Additional Health Concerns Assessment Noted Time PHQ-9 Depression Total Score: 21 021 9:12 AM EST PHQ-2 Depression Total Score: 6 05/08/20 21 9:15 AM EST documented as of this encounter Care Teams Preschool Assistant Teacher Relationship Specialty Start Date End Date Blanche Morris CNP [address] [place] [address] [email or web address] PCP - General Family Medicine 07/05/18 Lizzy Huber MD Primary Oncologist Medical Oncology 10/10/22 10/19/22 Lizzy Huber MD [address] [place] [address] Primary Oncologist Medical Oncology 10/20/22 Makenzie Mcghee MD [address] [place] [address], [address] [place] [address] General Surgery 10/25/22 Sadie Marina PA-C 15 [facility], 2nd [place] [address] Physician Extrusion Process Operator Medical Oncology 11/12/22 Mary Coates FNP 30 [place] [address] Nurse Practitioner Medical Oncology 11/17/22 Tali Guerrero MD [address] [place] [phone] Primary Oncologist Medical Oncology 12/31/22 Alejandro Tirado MD 4950 [facility] 30 [place] [address] Primary Oncologist Hematology and Oncology 02/06/23 08/13/23 Blanche Morris CNP 29 [place] [address] Insurance Assigned Provider 09/04/24 documented as of this encounter Additional Source Comments The information contained in this document represents components of the legal health record. It is not the complete legal health record.[facility]
--- OUTSIDE RECORDS SUMMARY | 2025-02-27 12:21 | XMS_ITS | Encounter Summary ---
Author Organization [facility] Address [address] [place] [address] Phone Care Team Providers Care Order Processing Clerk Name Role Phone Dioni Webb DO Primary Care Provider Blanche Morris CNP Primary Care Provide r Dioni Webb DO Unavailable Dioni Webb DO Unavailable Lizzy Huber MD Unavailable Unavailable Lizzy Huber MD Unavailable Makenzie Mcghee MD Unavailable Sadie Marina PA-C Unavailable tom Mary Coates SUPERVISOR PUBLIC MESSAGE SERVICE Unavailable [phone] Tali Guerrero MD Unavailable [phone] Alejandro Tirado MD Unavailable Blanche Morris CNP Unavailable [phone] Encounter Details Date Type Department Care Team (Latest Contact Info) Description 02/25/2018 Transcribe Orders [facility] [address] [place] [address] Joaquina Velasquez PA-C [address] [place] [address] Diarrhea, unspecified type (Primary Dx) Social History Tobacco Use Types [...] st Contact Info) Description 11/23/2024 Procedure Pass [address] [address] 10/06/2025 11:00 AM EDT Appointment [address] [address] Lizzy Huber MD [address] [place] [address] [email or web address] documented as of this encounter Results * Immunoglobulin A (02/25/2018 11:00 AM EDT) Pathologist [facility] IgA 101 70 - 400 mg/dL [facility] Blood 02/25/2018 11:0 0 AM EDT 02/25/2018 3:56 PM EDT us Joaquina Velasquez PA-C LAB BLOOD ORDERABLES Final Resu lt [address] [address] * Tissue transglutaminase IgA (02/25/2018 11:00 AM EDT) TTG IGA ANTIBODY <1.2 <4.0 (Negative) U/mL [facility] DPT OF LAB MED AND PAT+ Blood 02/25/2018 11:0 0 AM EDT 02/25/2018 11:13 AM EDT us Joaquina Velasquez PA-C LAB BLOOD ORDERABLES Final Resu lt [facility] DPT OF LAB MED AND PAT+ [address] [place] [address] documented in this encounter Visit Diagnoses Diagnosis Diarrhea, unspecified type- Primary documented in this encounter Additional Health Concerns Assessment Noted Time PHQ-2 Depression Total Score: 2 06/12/19 18 11:23 AM EST documented as of this encounter Care Teams Order Processing Clerk Relationship Specialty Start Date End Date Dioni Webb DO 29 [place] [address] PCP - General 03/19/17 07/04/18 Blanche Morris CNP 29 [place] [address] PCP - General Family Medicine 07/05/18 Dioni Webb DO 29 [place] [address] Insurance Assigned Provider 10/02/18 12/11/18 Dioni Webb DO 29 [place] [address] Insurance Assigned Provider 09/07/19 06/09/20 Lizzy Huber MD Primary Oncologist Medical Oncology 10/10/22 10/19/22 Lizzy Huber MD 30 [place] [address] Primary Oncologist Medical Oncology 10/20/22 Makenzie Mcghee MD 15 [facility], [address] [place] [address] General Surgery 10/25/22 Sadie Marina PA-C [address] [address] [email or web address] Physician Management Technician Medical Oncology 11/12/22 Mary Coates, SUPERVISOR PUBLIC MESSAGE SERVICE [address] [place] [address] [email or web address] Nurse Practitioner Medical Oncology 11/17/22spring, Tali Jimenez MD [address] [place] [phone] [email or web address] Primary Oncologist Medical Oncology 12/31/22 CandidaAlejandro alcala MD [address] [address] Primary Oncologist Hematology and Oncology 02/06/23 08/13/23 Blanche Morris, MARINA [address] [place] [address] Insurance Assigned Provider 09/04/24 documented as of this encounter Additional Source Comments The information contained in this document represents components of the legal health record. It is not the complete legal health record.[facility]
--- OUTSIDE RECORDS SUMMARY | 2025-02-27 12:21 | XMS_ITS | Encounter Summary ---
Author Organization [facility] Address [address] [place] [address] Phone Care Team Providers Care Critical Care Registered Nurse Name Role Phone Dinoi Webb DO Primary Care Provider Blanche Morris CNP Primary Care Provide r Dioni Webb DO Unavailable Dioni Webb DO Unavailable Lizzy Huber MD Unavailable Unavailable Lizzy Huber MD Unavailable Makenzie Mcghee MD Unavailable Sadie MarinaC Unavailable tom Mary Coates DENTAL INTERNSHIP Unavailable [phone] Tali Guerrero MD Unavailable [phone] Alejandro Tirado MD Unavailable Blanche Morris ASP NET C DEVELOPER Unavailable Encounter Details Date Type Department Care Team (Late st Contact Info) Description 12/22/2017 Transcribe Orders [facility] 29 [place] [address] Blanche Morris, ASP NET C DEVELOPER 29 [place] [address] Social History Tobacco Use Types Packs/Day Years [...] Contact Info) Description 11/23/2024 Procedure Pass [address] [address] 10/06/2025 11:00 AM EDT Appointment [address] [address] Lizzy Huber MD [address] [place] [address] documented as of this encounter Visit Diagnoses Not on filedocumented in this encounter Additional Health Concerns Assessment Noted Time PHQ-2 Depression Total Score: 2 06/12/19 18 11:23 AM EST documented as of this encounter Care Teams Critical Care Registered Nurse Relationship Specialty Start Date End Date Dioni Webb DO [address] [place] [address] PCP - General 03/19/17 07/04/18 Blanche Morris, MARINA [address] [place] [address] PCP - General Family Medicine 07/05/18 Dioni Webb DO [address] [place] [address] Insurance Assigned Provider 10/02/18 12/11/18 Dioni Webb DO 29 [place] [address] Insurance Assigned Provider 09/07/19 06/09/20 Lizzy Huber MD Primary Oncologist Medical Oncology 10/10/22 10/19/22 Lizzy Huber MD [address] [place] [address] Primary Oncologist Medical Oncology 10/20/22 Makenzie Mcghee MD [address] [place] [address] [email or web address] Surgery 10/25/22 Sadie Marina PA-C [address] [place] [address] Physician Machine Setter And Repairer Medical Oncology 11/12/22 Mary Coates FNP [address] [place] [address] Nurse Practitioner Medical Oncology 11/17/22spring, Tali Jimenez MD [address] [place] [phone] Primary Oncologist Medical Oncology 12/31/22 Alejandro Tirado MD [address] [place] [address] Primary Oncologist Hematology and Oncology 02/06/23 08/13/23 Blanche Morris CNP [address] [place] [address] [email or web address] Insurance Assigned Provider 09/04/24 documented as of this encounter Additional Source Comments The information contained in this document represents components of the legal health record. It is not the complete legal health record.[facility]
--- OUTSIDE RECORDS SUMMARY | 2025-02-27 12:21 | XMS_ITS | Encounter Summary ---
Author Organization [facility] Address [address] [place] [address] Phone Care Team Providers Care Long Haul Truck Driver Name Role Phone Blanche Morris CNP Primary Care Provide r Lizzy Huber MD Unavailable Unavailable Lizzy Huber MD Unavailable [phone] Makenzie Mcghee MD Unavailable [phone] Sadie Marina PA-C Unavailable pnugeluis armando Mary Coates WEB DESIGN SPECIALIST Unavailable [phone] SpringTali MD Unavailable [phone] Alejandro Tirado MD Unavailable Blanche Morris CNP Unavailable Reason for Referral * Outpatient Procedure - Closed Specialty Diagnoses / Procedures Referred By Zana t Referred To Contact Radiology Diagnoses Subareolar mass of right breast Procedures Mammogram Diagnostic Post Procedure (Right) Makenzie Mcghee MD Phone: tel: fax: [email or web address] Referral ID Status Reason Start Date Expiration Date Visits Re quested Visits Authorized [id number] Closed 09/25/2022 1 1 Encounter Details Date Type Department Care Team (Late st Contact Info) Description 09/25/2022 Ancillary Orders [facility] [address] [place] [address] Makenzie Mcghee MD [address] [place] [address], [address] [place] [address] [email or web address] Subareolar mass of right breast Social History Tobacco Use Types Packs/Day Years Used Date Smoking Tobacco: Former Cigarettes 0.3 37 1 07/04/1969 - 05/03/2007 Smokeless Tobacco: Never Alcohol Use Standard Drinks/Week Comments Not Currently 0 (1 standard drink = 0.6 oz pur e alcohol) Rare Education Answer Date Recorded Are you interested [...] Encounters Date Type Department Care Team (Late Contact Info) Description 11/23/2024 Procedure Pass [address] [address] 10/06/2025 11:00 AM EDT Appointment [address] [address] Lizzy Huber MD [address] [place] [address] documented as of this encounter Results * BI MAMMOGRAM DIAGNOSTIC POST PROCEDURE NO TOMOSYNTHESIS NO CAD (RIGHT) (09/25/2022 10:53 AM EDT) Anatomical Region Laterality Modality Breast Right, Breast Bilateral Right M ammography 09/25/2022 11:2 2 AM EDT Addenda Addendum by Dae Julien MD on 10/02/2022 9:36 AM EDT ADDENDUM: PATHOLOGY CONCORDANCE ADDENDUM: The final pathologic report describes: Invasive carcinoma with extensive necrosis, grade 3 . These pathologic findings are concordant with the mammographic and sonographic appearance of the lesion in question. Recommendation: Surgical evaluation : : : : : : : : : : : : : : : : : : : : : : : : : : : : : : : : : : : : Impressions 09/25/2022 11:28 AM EDT Uneventful, seemingly-successful ultrasound-guided biopsy of right breast mass. The patient will follow-up with Dr. Mcghee regarding the pathologic results. Narrative 09/25/2022 11:28 AM EDT ULTRASOUND GUIDED BIOPSY RIGHT BREAST: Preliminary scanning of the 12:00 supra-areolar right breast shows no change in the circumscribed hypoechoic mass noted on the 09/25/2022 mammogram and ultrasound. Using ChloraPrep skin cleanser and about 4 cc of 1% lidocaine anesthesia, a 13- gauge introducer needle was advanced to the medial margin of the mass from a medial- lateral approach. The 14-gauge spring-loaded Marquee biopsy device was then utilized to obtain 4 core biopsies of the mass. A Rotonda West shaped metallic marker was deployed at the site of biopsy. Postprocedure CC and true lateral 3-D mammograms confirm the marker is in the central aspect of the mass and there is no evidence of hematoma. The patient tolerated the procedure very well and no immediate complications were encountered. Procedure Note Dae Julien MD - 09/25/2022 ULTRASOUND GUIDED BIOPSY RIGHT BREAST: Preliminary scanning of the 12:00 supra-areolar right breast shows nochange in the circumscribed hypoechoic mass noted on the 09/25/2022mammogram and ultrasound. Using ChloraPrep skin cleanser and about 4 cc of 1% lidocaine anesthesia,a 13- gauge introducer needle was advanced to the medial margin of the massfrom a medial- lateral approach. The 14-gauge spring-loaded Marquee biopsydevice was then utilized to obtain 4 core biopsies of the mass. A Rachna shaped metallic marker was deployed at the site of biopsy. Postprocedure CC and true lateral 3-D mammograms confirm the marker is inthe central aspect of the mass and there is no evidence of hematoma. The patient tolerated the procedure very well and no immediatecomplications were encountered. IMPRESSION: Uneventful, seemingly-successful ultrasound-guided biopsy of right breastmass. The patient will follow-up with Dr. Mcghee regarding the pathologicresults. us Makenzie Mcghee MD IM MG EXAMS Edited Res ult - Final documented in this encounter Visit Diagnoses Diagnosis Subareolar mass of right breast Subareolar mass of right breast documented in this encounter Additional Health Concerns Assessment Noted Time PHQ-9 Depression Total Score: 18 022 10:26 AM EST PHQ-2 Depression Total Score: 4 05/07/20 22 10:27 AM EST documented as of this encounter Care Teams Long Haul Truck Driver Relationship Specialty Start Date End Date Blanche Morris CNP 29 [place] [address] [email or web address] PCP - General Family Medicine 07/05/18 Lizzy Huber MD Primary Oncologist Medical Oncology 10/10/22 10/19/22 Lizzy Huber MD 30 [place] [address] Primary Oncologist Medical Oncology 10/20/22 Makenzie Mcghee MD [address] [address] General Surgery 10/25/22 Sadie Marina PA-C 15 [facility], 2nd [place] [address] Physician Physical Therapy Aide Medical Oncology 11/12/22 Mary Coates FNP 30 [place] [address] Nurse Practitioner Medical Oncology 11/17/22 Tali Guerrero MD [address] [place] [phone] Primary Oncologist Medical Oncology 12/31/22 Alejandro Tirado MD [address] [address] Primary Oncologist Hematology and Oncology 02/06/23 08/13/23 Blanche Morris CNP 29 [place] [address] Insurance Assigned Provider 09/04/24 documented as of this encounter Additional Source Comments The information contained in this document represents components of the legal health record. It is not the complete legal health record.[facility]
--- OUTSIDE RECORDS SUMMARY | 2025-02-27 12:21 | XMS_ITS ---
Author Organization [facility] Address [address] [place] [id number] Phone Care Team Providers Care Interior Design Teacher Name Role Phone Blanche Morris CNP Primary Care Provide r Lizzy Huber MD Unavailable [phone] Makenzie Mcghee MD Unavailable Sadie Marina PA-C Unavailable pnugen Mary Coates SUPERVISOR THROWING DEPARTMENT Unavailable Tali Guerrero MD Unavailable [phone] Blanche Morris CNP Unavailable Active Problems Patient Care Coordination No te [...] providers if she wanted to return to [facility] to discuss Assessment & Plan (05/07/2022 11:20 AM EST): Numerous join complaints and continues with right hip despite replacement. Suggest a consult with a hospital admissions clerk, she will consider this. 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 She reports improvement with their treatment but continues with pain, excessive fatigue vulnerable brain , head tremor in past year. Recommend she see a therapist that deals with people with chronic pain. 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 HYDRATION & SUPPORTIVE CARE* Plan Start Date:12/18/2022 Plan Provider:Mary Coates FNP Linked Problems Invasive carcinoma of breast Treatment Medications No medications scheduled. Past Treatment and Therapy Plans TREATMENT PLAN Plan Name Start Date Discontinue Date Treatment Medications Discontinue Reason Plan Provider Cycles Taxol weekly/Q 3 week Carbo *MINIMUM SCR 0.7* 01/07/2023 03/18/2023 CARBOplatin (PARAPLATIN) IVPB (by AUC) 270 mLPACLitaxel (TAXOL)PACLitaxel (TAXOL) IVPB in 100 mL (Doses 85 mg or LESS) g. Patient Preference Lizzy Huber MD 3 of 4 cycles started AC EVERY 2 WEEKS - DOXORUBICIN 60 MG/M2/CYCLOPHO SPHAMIDE 600 MG/M2 11/05/2022 12/25/2022 cycloPHOSphamide (CYTOXAN) infusion 250 mL (liquid vial)DOXOrubicin (ADRIAMYCIN) e. Reapplying Amended Protocol / Plan Lizzy Huber MD 4 of 4 cycles started Lifetime Dose Tracking * Chemical Lifetime Dose Automatic Entry Manual Entr y doxorubicin 241.546 mg/m2 (352 mg) 241.546 mg/m2 (352 mg) 0 mg/m2 (0 mg) Resolved Problems Problem Noted Date Diagnosed Date [...] Plan (01/02/2021 9:39 AM EDT): Dx'd by [facility] and under treatment at specialty clinic with [...] a 67 y.o. female who presents to [facility] for consultation for adrenal nodule. [...]
== END 2025-02-27 11:52 | disposition home or self-care (01) ==
LOC: HO.HNS 10:48
PROVIDERS: PCP Nurse Practitioner Family; Visit Provider Physician Assistant
DX: M54.9 Dorsalgia, unspecified (principal)
CPT/HCPCS: 99204

== ENCOUNTER → 2025-02-27 10:48 | Outpatient (BNVA) | payer MEDICARE, SELFPAY | PROVIDERS: PCP Nurse Practitioner Family; Visit Provider Physician Assistant | DX: Z71.2 Person consulting for explanation of examination or test findings (principal); M54.50 Low back pain, unspecified; A69.29 Other conditions associated with Lyme disease | CPT/HCPCS: 99202 ==